=== PATIENT | female | born 1995 | race Two or more races ===

== ENCOUNTER 2017-03-11 17:02 | Emergency (ER) | payer MEDICAID ==
[2017-03-11] MEDS ORDERED: METOCLOPRAMIDE HCL 10 MG TABLET PO ONE (17:20)
--- NOTE | 2017-03-11 17:43 | ER Document Report ---
ED General - General Chief Complaint: Abdominal Pain Stated Complaint: ABDOMINAL PAIN Time Seen by Provider: 03/11/17 17:16 Mode of Arrival: Ambulatory Information source: Patient Notes: 21-year-old female presents with complaints of urinary symptoms and nausea. Patient notes she vomited 2 times today. Patient denies any fevers or chills TRAVEL OUTSIDE OF THE [place] IN LAST 30 DAYS: No - HPI Onset: Just prior to arrival Onset/Duration: Sudden Quality of pain: Achy Severity: Mild Pain Level: 1 Associated symptoms: Nausea, Vomiting Exacerbated by: Other - Urination Relieved by: Denies Similar symptoms previously: No Recently seen / treated by doctor: No - Related Data Allergies/Adverse Reactions: amphetamine sulfate [From Adderall] Allergy (Verified 01/11/15 20:38) dextroamphetamine [From Adderall] Allergy (Verified 01/11/15 20:38) risperidone [From Risperdal] Allergy (Verified 01/11/15 20:38) Past Medical History - Social History Smoking Status: Never Smoker Cigarette use (# per day): No Chew tobacco use (# tins/day): No Smoking Education Provided: No Frequency of alcohol use: None Drug Abuse: None Family History: DM, Thyroid Disfunction Renal/ Medical History: Denies: Hx Peritoneal Dialysis Psychiatric Medical History: Reports: Hx Attention Deficit Hyperactivity Disorder, Hx Bipolar Disorder - Immunizations Immunizations up to date: Yes Hx Diphtheria, Pertussis, Tetanus Vaccination: Yes Review of Systems - Review of Systems Notes: REVIEW OF SYSTEMS: CONSTITUTIONAL : Denies fever, chills, or sweats. Denies recent illness. EENT: Denies eye, ear, throat, or mouth pain or symptoms. Denies nasal or sinus congestion or discharge. Denies throat, tongue, or mouth swelling or difficulty swallowing. CARDIOVASCULAR: Denies chest pain. Denies palpitations or racing or irregular heart beat. Denies ankle edema. RESPIRATORY: Denies cough, cold, or chest congestion. Denies shortness of breath, difficulty breathing, or wheezing. GASTROINTESTINAL: Admits to nausea vomiting suprapubic pressure left flank pain GENITOURINARY: Admits to burning on urination FEMALE GENITOURINARY: Denies vaginal bleeding, heavy or abnormal periods, irregular periods. Denies vaginal discharge or odor. MUSCULOSKELETAL: Denies back or neck pain or stiffness. Denies joint pain or swelling. SKIN: Denies rash, lesions or sores. HEMATOLOGIC : Denies easy bruising or bleeding. LYMPHATIC: Denies swollen, enlarged glands. NEUROLOGICAL: Denies confusion or altered mental status. Denies passing out or loss of consciousness. Denies dizziness or lightheadedness. Denies headache. Denies weakness or paralysis or loss of use of either side. Denies problems with gait or speech. Denies sensory loss, numbness, or tingling. Denies seizures. PSYCHIATRIC: Denies anxiety or stress. Denies depression, suicidal ideation, or homicidal ideation. ALL OTHER SYSTEMS REVIEWED AND NEGATIVE. PHYSICAL EXAMINATION: GENERAL: Well-appearing, well-nourished and in no acute distress. HEAD: Atraumatic, normocephalic. EYES: Pupils equal round and reactive to light, extraocular movements intact, conjunctiva are normal. ENT: Nares patent, oropharynx clear without exudates. Moist mucous membranes. NECK: Normal range of motion, supple without lymphadenopathy LUNGS: Breath sounds clear to auscultation bilaterally and equal. No wheezes rales or rhonchi. HEART: Regular rate and rhythm without murmurs ABDOMEN: Soft, nontender, nondistended abdomen. No guarding, no rebound. No masses appreciated. Female : deferred Musculoskeletal: Normal range of motion, no pitting or edema. No cyanosis. NEUROLOGICAL: Cranial nerves grossly intact. Normal speech, normal gait. Normal sensory, motor exams PSYCH: Normal mood, normal affect. SKIN: Warm, Dry, normal turgor, no rashes or lesions noted. Dictation was performed using siX[employer] voice recognition software Physical Exam - Vital signs Vitals: Temp Pulse Resp BP Pulse Ox 98.7 F 81 16 141/78 H 98 03/11/17 17:06 03/11/17 17:06 03/11/17 17:06 03/11/17 17:06 03/11/17 17:06 Course - Re-evaluation Re-evalutation: 03/11/17 17:45 Physical examination noted a very well-appearing 21-year-old female who is in no distress. Urinalysis is pending at this time. Patient given nausea control 03/11/17 18:18 Urinalysis notes no significant abnormality, hCG is negative. I believe patient 's biggest concern is a test since she keeps asking for this specifically After performing a Medical Screening Examination, I estimate there is LOW risk for ACUTE APPENDICITIS, BOWEL OBSTRUCTION, ACUTE CHOLECYSTITIS, PERFORATED DIVERTICULITIS, INCARCERATED HERNIA, PANCREATITIS, PELVIC INFLAMMATORY DISEASE, PERFORATED ULCER, ECTOPIC , or TUBO-OVARIAN ABSCESS, thus I consider the discharge disposition reasonable. Also, there is no evidence or peritonitis , sepsis, or toxicity. I have reevaluated this patient multiple times and no significant life threatening changes are noted. The patient and I have discussed the diagnosis and risks, and we agree with discharging home with close follow-up with the understanding that symptoms and presentations can change. We also discussed returning to the Emergency Department immediately if new or worsening symptoms occur. We have discussed the symptoms which are most concerning (e.g., bloody stool, fever, changing or worsening pain, vomiting) that necessitate immediate return. - Vital Signs Vital signs: Temp Pulse Resp BP Pulse Ox 98.7 F 81 16 141/78 H 98 03/11/17 17:06 03/11/17 17:06 03/11/17 17:06 03/11/17 17:06 03/11/17 17:06 - Laboratory Laboratory results interpreted by me: 03/11/17 17:35 Urine Blood SMALL H Discharge - Discharge Clinical Impression: Nausea & vomiting Qualifiers: Vomiting type: unspecified Vomiting Intractability: non-intractable Qualified Code(s): R11.2 - Nausea with vomiting, unspecified Abdominal pain Qualifiers: Abdominal location: unspecified location Qualified Code(s): R10.9 - Unspecified abdominal pain Condition: Stable Disposition: HOME, SELF-CARE Instructions: Abdominal Pain ([facility]) Additional Instructions: Follow up with your physician tomorrow for further care or return to the ED IMMEDIATELY if symptoms worsen or new concerns occur. If you cannot afford to follow up with your primary care physician a list of low cost clinics have been provided at the end of your discharge papers as well. Prescriptions: Metoclopramide HCl [Reglan 10 mg Tablet] 1 - 2 tab PO ASDIR PRN #14 tablet PRN Reason:
[2017-03-11 17:57] LABS: APPEARANCE,URINE CLEAR; BILIRUBIN,URINE NEGATIVE (NEGATIVE); GLUCOSE, URINE NEGATIVE (NEGATIVE); KETONES,URINE NEGATIVE (NEGATIVE); LEUKOCYTE ESTERASE,URINE NEGATIVE (NEGATIVE); NITRITE,URINE NEGATIVE (NEGATIVE); PROTEIN,URINE NEGATIVE (NEGATIVE); URINE SPECIFIC GRAVITY 1.021; UROBILINOGEN,URINE NEGATIVE mg/dL (<2.0)
[2017-03-11 18:50] VITALS: BP 138/74
== END 2017-03-11 18:31 | disposition home or self-care (01) ==
LOC: ER 17:02
DX: R11.2 Nausea with vomiting, unspecified (principal); R10.9 Unspecified abdominal pain; Z88.8 Allergy status to other drugs, medicaments and biological substances
CPT/HCPCS: 81025; 99284; 81001; J3490

== ENCOUNTER 2017-09-05 13:36 | Emergency (ER) | payer MEDICAID ==
--- NOTE | 2017-09-05 14:14 | ER Document Report ---
ED Medical Screen (RME) - General Chief Complaint: Abdominal Pain Stated Complaint: ABDOMINAL PAIN, LOW BACK PAIN Time Seen by Provider: 09/05/17 14:10 Mode of Arrival: Ambulatory Information source: Patient TRAVEL OUTSIDE OF THE [place] IN LAST 30 DAYS: No - HPI Patient complains to provider of: abd pain Onset: Other - pt is approx 25 weels and has c/o abd and LBP - Related Data Allergies/Adverse Reactions: amphetamine sulfate [From Adderall] Allergy (Verified 09/05/17 13:39) dextroamphetamine [From Adderall] Allergy (Verified 09/05/17 13:39) risperidone [From Risperdal] Allergy (Verified 09/05/17 13:39) Past Medical History - Social History Chew tobacco use (# tins/day): No Frequency of alcohol use: None Drug Abuse: None Renal/ Medical History: Denies: Hx Peritoneal Dialysis Psychiatric Medical History: Reports: Hx Attention Deficit Hyperactivity Disorder, Hx Bipolar Disorder Past Surgical History: Reports: Hx Tonsillectomy - Immunizations Immunizations up to date: Yes Hx Diphtheria, Pertussis, Tetanus Vaccination: Yes Physical Exam - Vital signs Vitals: Temp Pulse Resp BP Pulse Ox 98.6 F 77 18 128/63 H 100 09/05/17 13:44 09/05/17 13:44 09/05/17 13:44 09/05/17 13:44 09/05/17 13:44 Course - Vital Signs Vital signs: Temp Pulse Resp BP Pulse Ox 98.6 F 77 18 128/63 H 100 09/05/17 13:44 09/05/17 13:44 09/05/17 13:44 09/05/17 13:44 09/05/17 13:44
[2017-09-05 14:33] LABS: ABSOLUTE LYMPHOCYTES (AUTO) 1.2 10^3/uL (0.5-4.7); ABSOLUTE MONOCYTES (AUTO) 0.3 10^3/uL (0.1-1.4); ABSOLUTE NEUT (AUTO) 4.7 10^3/uL (1.7-8.2); BASOPHILS % (AUTO) 0.7 % (0-2); EOSINOPHILS % (AUTO) 0.4 % (0-6); HEMATOCRIT 34.3 % (36.0-47.0); HEMOGLOBIN 11.8 g/dL (12.0-15.5); LYMPHOCYTES % (AUTO) 19.3 % (13-45); MEAN CORPUSCULAR HEMOGLOBIN 28.7 pg (27.0-33.4); MEAN CORPUSCULAR HGB CONC 34.3 g/dL (32.0-36.0); MEAN CORPUSCULAR VOLUME 84 fl (80-97); MONOCYTES % (AUTO) 4.4 % (3-13); PLATELET COUNT 192 10^3/uL (150-450); RED CELL DISTRIBUTION WIDTH 14.8 % (11.5-14.0); SEGMENTED NEUTROPHILS % (AUTO) 75.2 % (42-78); TOTAL CELLS COUNTED % (AUTO) 100 %; WHITE BLOOD COUNT 6.2 10^3/uL (4.0-10.5)
[2017-09-05 14:36] LABS: APPEARANCE,URINE CLOUDY; BILIRUBIN,URINE NEGATIVE (NEGATIVE); COLOR,URINE YELLOW; GLUCOSE, URINE NEGATIVE (NEGATIVE); KETONES,URINE 20 mg/dL (NEGATIVE); LEUKOCYTE ESTERASE,URINE TRACE (NEGATIVE); NITRITE,URINE NEGATIVE (NEGATIVE); PROTEIN,URINE NEGATIVE (NEGATIVE); URINE SPECIFIC GRAVITY 1.025; UROBILINOGEN,URINE NEGATIVE mg/dL (<2.0)
[2017-09-05 14:48] LABS: ALANINE AMINOTRANSFERASE 16 U/L (9-52); ALBUMIN 3.7 g/dL (3.5-5.0); ALKALINE PHOSPHATASE 84 U/L (38-126); ANION GAP 7 (5-19); ASPARTATE AMINO TRANSFERASE 14 U/L (14-36); BILIRUBIN,DIRECT 0.3 mg/dL (0.0-0.4); BILIRUBIN,TOTAL 0.4 mg/dL (0.2-1.3); BLOOD UREA NITROGEN 11 mg/dL (7-20); CALCIUM 9.2 mg/dL (8.4-10.2); CARBON DIOXIDE 22 mmol/L (22-30); CHLORIDE 107 mmol/L (98-107); GLUCOSE 69 mg/dL (75-110); POTASSIUM 4.2 mmol/L (3.6-5.0); SODIUM 135.9 mmol/L (137-145); TOTAL PROTEIN 6.5 g/dL (6.3-8.2)
--- NOTE | 2017-09-05 16:35 | RADIOLOGY REPORT (SQ) ---
EXAM DESCRIPTION: U/S OB 14+ TA/1 GEST W/DOPPLER COMPLETED DATE/TIME: 09/05/2017 4:22 pm REASON FOR STUDY: ; abd pain COMPARISON: None. TECHNIQUE: Static and Dynamic grayscale imaging performed of gravid uterus using transabdominal appr oach. Additional selected color Doppler and spectral images recorded. All stored on PACS. LIMITATIONS: positioning and movement. FINDINGS: EGA: 24 weeks 4 days JONI: 12/22/2017 EFW: 735 grams PERCENTILE: 40 CARL: 5.5 PLACENTA: Anterior. GRADE: I PRESENTATION: Cephalic. ANATOMY: HEART RATE: 150 beats per minute. FOUR CHAMBER HEART: Not visualized. THREE VESSEL CORD: Yes. CORD INSERTION: Not visualized. KIDNEYS AND BLADDER: Not visualized. STOMACH: Visualized. Appears normal. SPINE: Normal as visualized. BRAIN AND LATERAL VENTRICLES: Visualized. Appear normal. OTHER: No other significant finding. MATERNAL ADNEXA: Maternal ovaries not visualized. CERVICAL LENGTH: 3.1 cm Closed. OTHER: No other significant finding. IMPRESSION: LIVING INTRAUTERINE . ESTIMATED GESTATIONAL AGE 24 weeks 4 days NO VISUALIZED ANOMALIES. Trimester of : Second trimester - 13 weeks 1 day to 27 weeks 6 days. TECHNICAL DOCUMENTATION: JOB ID: [id number] [employer]- All Rights Reserved
--- NOTE | 2017-09-05 18:18 | ER Document Report ---
ED GI/ - General Mode of Arrival: Ambulatory Information source: Patient TRAVEL OUTSIDE OF THE [place] IN LAST 30 DAYS: No <SANDRA CURIEL - Last Filed: 09/05/17 18:32> <ENMANUEL BATISTA - Last Filed: 09/05/17 23:42> - General Chief Complaint: Abdominal Pain Stated Complaint: ABDOMINAL PAIN, LOW BACK PAIN Time Seen by Provider: 09/05/17 14:10 Notes: Patient is a 25 week 22-year-old female who is that presents to the emergency department today with complaints of back pain and abdominal pain. Patient is approximately 25 weeks . Patient states that she has not been drinking enough water because her "big cup broke" and she "does not like getting up to go back and forth to get water". (SANDRA CURIEL) - Related Data Allergies/Adverse Reactions: amphetamine sulfate [From Adderall] Allergy (Verified 09/05/17 13:39) dextroamphetamine [From Adderall] Allergy (Verified 09/05/17 13:39) risperidone [From Risperdal] Allergy (Verified 09/05/17 13:39) Past Medical History - General Information source: Patient - Social History Smoking Status: Former Smoker Cigarette use (# per day): No Chew tobacco use (# tins/day): No Frequency of alcohol use: None Drug Abuse: None Lives with: Family Family History: Reviewed & Not Pertinent, DM, Thyroid Disfunction Patient has suicidal ideation: No Patient has homicidal ideation: No Psychiatric Medical History: Reports: Hx Attention Deficit Hyperactivity Disorder, Hx Bipolar Disorder Past Surgical History: Reports: Hx Tonsillectomy - Immunizations Immunizations up to date: Yes Hx Diphtheria, Pertussis, Tetanus Vaccination: Yes <SANDRA CURIEL - Last Filed: 09/05/17 18:32> Review of Systems - Review of Systems Constitutional: No symptoms reported EENT: No symptoms reported Cardiovascular: No symptoms reported Respiratory: No symptoms reported Gastrointestinal: See HPI, Abdominal pain Genitourinary: No symptoms reported Female Genitourinary: See HPI, Musculoskeletal: See HPI, Back pain Skin: No symptoms reported Hematologic/Lymphatic: No symptoms reported Neurological/Psychological: No symptoms reported -: Yes All other systems reviewed and negative <SANDRA CURIEL - Last Filed: 09/05/17 18:32> Physical Exam <ROXANA CURIELON - Last Filed: 09/05/17 18:32> <ENMANUEL BATISTA - Last Filed: 09/05/17 23:42> - Vital signs Vitals: Temp Pulse Resp BP Pulse Ox 98.6 F 77 18 128/63 H 100 09/05/17 13:44 09/05/17 13:44 09/05/17 13:44 09/05/17 13:44 09/05/17 13:44 - Notes Notes: General: Alert, appears well, talking on cellphone upon entry into room in no distress. HEENT: Normocephalic. Atraumatic. PERRL. Extraocular movements intact. Oropharynx clear. Neck: Supple. Non-tender. Respiratory: No respiratory distress. Clear and equal breath sounds bilaterally. Cardiovascular: Regular rate and rhythm. Abdominal: Normal Inspection. Non-tender. No distension. Normal Bowel Sounds. Female Genitourinary: Gravid uterus. Back: Non-tender. No deformity or step off. Extremities: Moves all four extremities. Upper extremities: Normal inspection. Normal ROM. Lower extremities: Normal inspection. No edema. Normal ROM. Neurological: Normal cognition. AAOx4. Normal speech. Psychological: Normal affect. Normal Mood. Skin: Warm. Dry. Normal color. (SANDRA CURIEL) Course - Laboratory Result Diagrams: 09/05/17 14:25 09/05/17 14:25 <SANDRA CURIEL - Last Filed: 09/05/17 18:32> - Laboratory Result Diagrams: 09/05/17 14:25 09/05/17 14:25 <ENMANUEL BATISTA - Last Filed: 09/05/17 23:42> - Re-evaluation Re-evalutation: 09/05/17 18:22 Workup shows no signs of urinary tract infection with normal intrauterine . Patient does have mild ketones. I did discuss with patient need for hydration. Return precautions provided. Instructed the patient follow-up with her OB GEN for next scheduled regular appointment. (ENMANUEL BATISTA) - Vital Signs Vital signs: Temp Pulse Resp BP Pulse Ox 98.1 F 87 16 120/54 L 100 09/05/17 17:19 09/05/17 18:40 09/05/17 18:40 09/05/17 18:40 09/05/17 18:40 - Laboratory Laboratory results interpreted by me: 09/05/17 09/05/17 09/05/17 14:25 14:25 14:25 Hgb 11.8 L Hct 34.3 L RDW 14.8 H Sodium 135.9 L Glucose 69 L Beta HCG, Quant 60599.00 H Urine Ketones 20 H Ur Leukocyte Esterase TRACE H Discharge <SANDRA CURIEL - Last Filed: 09/05/17 18:32> <ENMANUEL BATISTA - Last Filed: 09/05/17 23:42> - Discharge Clinical Impression: Dehydration during Qualifiers: Weeks of gestation: 25 weeks Qualified Code(s): Z3A.25 - 25 weeks gestation of Back pain Qualifiers: Back pain location: low back pain Chronicity: unspecified Back pain laterality : bilateral Sciatica presence: without sciatica Qualified Code(s): M54.5 - Low back pain Disposition: HOME, SELF-CARE Instructions: Low Back Pain ([facility]), Pelvic Pain in ([facility]) Additional Instructions: Please drink at least 4-6 16oz glasses of water a day. Prescriptions: Metoclopramide HCl [Reglan 10 mg Tablet] 1 - 2 tab PO ASDIR PRN #15 tablet PRN Reason: Scribe Attestation: 09/05/17 23:42 I personally performed the services described documentation, reviewed and edited the documentation which was dictated to describe my presence, and it accurately records my words and actions. (ENMANUEL BATISTA) Scribe Documentation - Scribe Written by Scribe:: Jose Escudero, 09/05/2017 1857 acting as scribe for :: Sarah <SANDRA CURIEL - Last Filed: 09/05/17 18:32>
[2017-09-05 18:42] VITALS: BP 120/54
== END 2017-09-05 18:42 | disposition home or self-care (01) ==
LOC: ER 13:36
DX: O99.282 Endocrine, nutritional and metabolic diseases complicating pregnancy, second trimester (principal); E86.0 Dehydration; O26.892 Other specified pregnancy related conditions, second trimester; M54.5 Low back pain; O99.89 Other specified diseases and conditions complicating pregnancy, childbirth and the puerperium; R10.9 Unspecified abdominal pain; Z3A.25 25 weeks gestation of pregnancy; Z88.8 Allergy status to other drugs, medicaments and biological substances; Z87.891 Personal history of nicotine dependence
CPT/HCPCS: 36415; 76805; 80053; 81001; 84702; 85025; 93976; 99284

== ENCOUNTER 2017-12-11 15:14 | Outpatient (CLI) | payer MEDICAID ==
--- NOTE | 2017-12-11 16:07 | Non Stress Test Report ---
Non Stress Test Datetime Report Generated by CPN: 12/11/2017 16:07 DEMOGRAPHIC EGA NST: 39.0 INDICATION Indication for Study: Ordered by Provider Indication for Study (NST) Other: LC MONITORING Monitor Explained: Monitor Explained; Test Explained; Patient Verbalized Understanding Time on Monitor: 12/11/2017 15:42 Time off Monitor: 12/11/2017 16:04 NST Duration: 22 NST INTERVENTIONS NST Interventions: PO Hydration; Reposition Patient Physician Notified NST: JTrevin Coronado, CNM viewed strip BABY A: [id number] BABY A Movement : Present Contraction Frequency : 0 FHR Baseline : 140 Accelerations : 15X15 Decelerations : None Variability : Moderate 6-25bpm NST Review: Meets Criteria for Reactive NST NST Review and Verified By : KARYN Shipman Results: Reactive NST REPORT Report Trigger: Send Report
[2017-12-11 16:40] LABS: APPEARANCE,URINE CLEAR; BILIRUBIN,URINE NEGATIVE (NEGATIVE); COLOR,URINE YELLOW; GLUCOSE, URINE NEGATIVE (NEGATIVE); KETONES,URINE NEGATIVE (NEGATIVE); LEUKOCYTE ESTERASE,URINE NEGATIVE (NEGATIVE); NITRITE,URINE NEGATIVE (NEGATIVE); PROTEIN,URINE NEGATIVE (NEGATIVE); URINE SPECIFIC GRAVITY 1.009
[2017-12-11 16:56] LABS: URINE AMPHETAMINES SCREEN NEGATIVE; URINE BARBITURATES SCREEN NEGATIVE; URINE BENZODIAZEPINES SCREEN NEGATIVE; URINE COCAINE SCREEN NEGATIVE; URINE MARIJUANA (THC) SCREEN NEGATIVE; URINE METHADONE SCREEN NEGATIVE; URINE PHENCYCLIDINE SCREEN NEGATIVE
== END 2017-12-11 17:15 | disposition home or self-care (01) ==
LOC: EDSTATUS 15:19 → LC 15:23
PROVIDERS: ATTEND Obstetrics & Gynecology
PROC: 4A1HXCZ Monitoring of Products of Conception, Cardiac Rate, External Approach (ICD-10-PCS; principal; 2017-12-11)
DX: Z34.93 Encounter for supervision of normal pregnancy, unspecified, third trimester (principal)
CPT/HCPCS: 59025; 80307; 81001

== ENCOUNTER 2017-12-17 20:11 | Outpatient (CLI) | payer MEDICAID ==
[2017-12-17 20:52] LABS: APPEARANCE,URINE CLOUDY; BILIRUBIN,URINE NEGATIVE (NEGATIVE); COLOR,URINE YELLOW; GLUCOSE, URINE NEGATIVE (NEGATIVE); KETONES,URINE NEGATIVE (NEGATIVE); LEUKOCYTE ESTERASE,URINE TRACE (NEGATIVE); NITRITE,URINE NEGATIVE (NEGATIVE); PROTEIN,URINE 30 mg/dL (NEGATIVE); URINE SPECIFIC GRAVITY 1.019
[2017-12-17 21:05] LABS: AMNISURE (ROM) NEGATIVE (NEGATIVE)
[2017-12-17 21:27] LABS: URINE AMPHETAMINES SCREEN NEGATIVE; URINE BARBITURATES SCREEN NEGATIVE; URINE BENZODIAZEPINES SCREEN NEGATIVE; URINE COCAINE SCREEN NEGATIVE; URINE MARIJUANA (THC) SCREEN NEGATIVE; URINE METHADONE SCREEN NEGATIVE; URINE PHENCYCLIDINE SCREEN NEGATIVE
[2017-12-17 22:35] LABS: CHLAM PCR NOT DETECTED (NOT DETECT); GON PCR NOT DETECTED (NOT DETECT)
== END 2017-12-17 21:34 | disposition home or self-care (01) ==
LOC: LC 20:11
PROVIDERS: ATTEND Obstetrics & Gynecology Gynecology
PROC: 4A1HXCZ Monitoring of Products of Conception, Cardiac Rate, External Approach (ICD-10-PCS; principal; 2017-12-17)
DX: O47.1 False labor at or after 37 completed weeks of gestation (principal); Z3A.39 39 weeks gestation of pregnancy
CPT/HCPCS: 59025; 80307; 81005; 84112; 87081; 87491; 87591

== ENCOUNTER 2017-12-18 06:10 | Inpatient (IN) | payer MEDICAID ==
--- NOTE | 2017-12-18 06:13 | Non Stress Test Report ---
Non Stress Test Datetime Report Generated by CPN: 12/18/2017 06:13 DEMOGRAPHIC EGA NST: 39.6 INDICATION Indication for Study: Ordered by Provider; Other Indication for Study (NST) Other: LC MONITORING Monitor Explained: Monitor Explained; Test Explained; Patient Verbalized Understanding Time on Monitor: 12/17/2017 20:31 Time off Monitor: 12/17/2017 21:26 NST Duration: 55 NST INTERVENTIONS NST Interventions: PO Hydration; Reposition Patient Physician Notified NST: Dr Blair BABY A: [id number] BABY A Movement : Present Contraction Frequency : irregular FHR Baseline : 140 Accelerations : 15X15 Decelerations : None Variability : Moderate 6-25bpm NST Review: Meets Criteria for Reactive NST NST Review and Verified By : Michelle Bellavancjaniya RNC NST Results: Reactive NST REPORT Report Trigger: Send Report
[2017-12-18 06:46] LABS: APPEARANCE,URINE CLOUDY; BILIRUBIN,URINE NEGATIVE (NEGATIVE); COLOR,URINE YELLOW; GLUCOSE, URINE NEGATIVE (NEGATIVE); KETONES,URINE NEGATIVE (NEGATIVE); LEUKOCYTE ESTERASE,URINE TRACE (NEGATIVE); NITRITE,URINE NEGATIVE (NEGATIVE); PROTEIN,URINE NEGATIVE (NEGATIVE); URINE SPECIFIC GRAVITY 1.012
[2017-12-18 07:06] LABS: URINE AMPHETAMINES SCREEN NEGATIVE; URINE BARBITURATES SCREEN NEGATIVE; URINE BENZODIAZEPINES SCREEN NEGATIVE; URINE COCAINE SCREEN NEGATIVE; URINE MARIJUANA (THC) SCREEN NEGATIVE; URINE METHADONE SCREEN NEGATIVE; URINE PHENCYCLIDINE SCREEN NEGATIVE
[2017-12-18] MEDS ORDERED: RINGERS SOLUTION,LACTATED 1,000 ML IV PRN (07:18)
[2017-12-18] MEDS ORDERED: RINGERS SOLUTION,LACTATED 1,000 ML IV ONE (07:18)
[2017-12-18 07:58] LABS: ABSOLUTE LYMPHOCYTES (AUTO) 1.5 10^3/uL (0.5-4.7); ABSOLUTE MONOCYTES (AUTO) 0.4 10^3/uL (0.1-1.4); ABSOLUTE NEUT (AUTO) 5.1 10^3/uL (1.7-8.2); BASOPHILS % (AUTO) 0.6 % (0-2); EOSINOPHILS % (AUTO) 0.4 % (0-6); HEMATOCRIT 34.7 % (36.0-47.0); HEMOGLOBIN 11.4 g/dL (12.0-15.5); LYMPHOCYTES % (AUTO) 21.3 % (13-45); MEAN CORPUSCULAR HEMOGLOBIN 25.8 pg (27.0-33.4); MEAN CORPUSCULAR HGB CONC 32.8 g/dL (32.0-36.0); MEAN CORPUSCULAR VOLUME 79 fl (80-97); MONOCYTES % (AUTO) 5.1 % (3-13); PLATELET COUNT 131 10^3/uL (150-450); RED BLOOD COUNT 4.42 10^6/uL (3.72-5.28); RED CELL DISTRIBUTION WIDTH 16.1 % (11.5-14.0); SEGMENTED NEUTROPHILS % (AUTO) 72.6 % (42-78); TOTAL CELLS COUNTED % (AUTO) 100 %
[2017-12-18] MEDS ORDERED: MISOPROSTOL 0.2 MG TABLET ONE (08:07)
[2017-12-18] MEDS ORDERED: OXYTOCIN/NORMAL SALINE 0 UNIT/0 ML RTUINJ ONE (08:07)
[2017-12-18] MEDS ORDERED: LIDOCAINE 1% INJ-PF (10 MG/ML) 30 ML SDV ONE (08:07)
[2017-12-18] MEDS ORDERED: OXYTOCIN 10 UNIT/ML VIAL ONE (08:23)
[2017-12-18] MEDS ORDERED: ACETAMINOPHEN WITH CODEINE #3 TABLET PO PRN (08:41)
[2017-12-18] MEDS ORDERED: MEASLES,MUMPS&RUBELLA VACC/PF 0.5 ML VIAL SUBCUT PRN (08:41)
[2017-12-18] MEDS ORDERED: DIPHENHYDRAMINE HCL 25 MG CAPSULE PO PRN (08:41)
[2017-12-18] MEDS ORDERED: PROMETHAZINE HCL INJ 25 MG/1 ML VIAL IV PRN (08:41)
[2017-12-18] MEDS ORDERED: GLYCERIN/WITCH HAZEL LEAF 1 EACH MED..PAD TP PRN (08:41)
[2017-12-18] MEDS ORDERED: ACETAMINOPHEN 650 MG SUPP.RECT PR PRN (08:41)
[2017-12-18] MEDS ORDERED: NA PHOS,M-B/NA PHOS,DI-BA (ADULT) 133 ML ENEMA PR PRN (08:41)
[2017-12-18] MEDS ORDERED: PROMETHAZINE HCL 25 MG SUPP.RECT PR PRN (08:41)
[2017-12-18] MEDS ORDERED: DIPH/PERTUSS(ACELL)/TETANUS VAC/PF 0.5 ML SYR (>=10YO) IM PRN (08:41)
[2017-12-18] MEDS ORDERED: MAGNESIUM HYDROXIDE SUSP 30 ML UDCUP PO PRN (08:41)
[2017-12-18] MEDS ORDERED: DIBUCAINE 1% OINTMENT 28 GM TP PRN (08:41)
[2017-12-18] MEDS ORDERED: ACETAMINOPHEN 325 MG TABLET PO PRN (08:41)
[2017-12-18] MEDS ORDERED: BENZOCAINE/MENTHOL AEROSOL SPRAY 56 ML TOP PRN (08:41)
[2017-12-18] MEDS ORDERED: PROMETHAZINE HCL 25 MG TABLET PO PRN (08:41)
[2017-12-18] MEDS ORDERED: PSEUDOEPHEDRINE HCL 30 MG TABLET PO PRN (08:41)
--- NOTE | 2017-12-18 08:44 | Admission Physical ---
Datetime Report Generated by CPN: 12/18/2017 08:44 CURRENT ADMISSION Chief Complaint: Uterine Contractions Indication for Induction: Not Applicable Admit Impression : Term, Intrauterine ; Active Labor Admit Plan: Admit to Unit; Initiate Labor Protocol ALLERGIES Medication Allergies: Yes Medication Allergies: amphetamine sulfate (12/17/2017); dextroamphetamine (12/17/2017); risperidone (12/17/2017) Latex: No Latex Allergies Food Allergies: none Environmental Allergies: none OBSTETRICAL HISTORY EDC: 12/18/2017 00:00 : 4 Para: 2 Term: 2 : 0 SAB: 1 IAB: 0 Ectopic: 0 Livin Cesareans: 0 VBACs: 0 Multiple Births: 0 Gestational Diabetes: No Rh Sensitization: No Incompetent Cervix: No SAMUEL: No Infertility: No ART Treatment: No Uterine Anomaly: No IUGR: No Hx Previous C/S: No Macrosomia: No Hx Loss/Stillborn: No PIH: No Hx : No Placenta Previa/Abruption: No Depression/PP Depression: Yes PTL/PROM: No Post Hemorrhage: No Current Procedures: Ultrasound; NST Obstetrical History Comments: G1 2014 39 girl G2 2015 39 boy G3 2016 SAB G4 current SEE RECORDS Alcohol: No Marijuana : No Cocaine: No Other Illicit Drugs: No Cigarettes: Never Smoker. 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 Surgery: No Heart Disease: No Hosp/Surgery: Yes Autoimmune Disorder: No Anesthetic Complications: No Kidney Disease: No Abnormal Pap Smear: No Neuro/Epilepsy: No Psychiatric Disorders: Yes Other Medical Diseases: No Hepatitis/Liver Disease: No Significant Family History: No Varicosities/Phlebitis: No Trauma/Violence : No Thyroid Dysfunction: No Medical History Comments: Depression and anxiety, Bipolar INFECTIOUS HISTORY Gonorrhea: No Genital Herpes: No Chlamydia: No Tuberculosis: No Syphilis: No Hepatitis: No HIV/AIDS Exposure: No Rash or Viral Illness: No HPV: No PHYSICAL EXAM General: Normal HEENT: Normal Neurologic: Normal Thyroid: Normal Heart: Normal Lungs: Normal Breast: Normal Back: Normal Abdomen: Normal Genitourinary Exam: Normal Extremities: Normal DTRs: Normal Pelvic Type: Adequate Vital Signs: Reviewed VAGINAL EXAM Dilatation: 9 Effacement: 100 Station: 2 MEMBRANES Pooling: Positive Membranes: Ruptured Amniotic Fluid Color: Clear FETUS A EGA: 40.0 Monitoring: External US FHR- Baseline: 130 Variability: Moderate 6-25bpm Accelerations: 15X15 Decelerations: Variable FHR Category: Category II Estimated Weight (gm): 3700 Presentation: Vertex Admit Comment: AROM performed by me. PLANS FOR LABOR AND DELIVERY Labor and Delivery: None Pain Management: Epidural Feeding Preference: Formula Benefit of Breast Feed Discussed: Yes Circumcision: N/A INFORMED CONSENT Signature: with User ID: [email or web address]
--- NOTE | 2017-12-18 09:35 | Delivery Summary ---
Del Sum A-C Datetime Report Generated by CPN: 12/18/2017 09:35 DELIVERY PERSONNEL DELIVERY PERSONNEL: [id number] Delivery Doctor:: Shahrzad Tan CNM Labor and Delivery Nurse:: Emely Springer RNpacking machine pilot can router Nurse:: Cinthia Connors Air Conditioning Service Technician/DELIVERY ROUTE DRIVER: Kelsi Lakhani, ST Additional Personnel: : Mary Mixon, RN MATERNAL INFORMATION Delivery Anesthesia: None Medications After Delivery: Other-Please Comment Meds After Delivery Comment: Pitocin 20 Units IM Maternal Complications: Precipitous Labor (<3hrs) Provider Comments: care assumed while patient was pushing. Pt. is a 22yo G4 now P3 A pos, RI, GBS neg with late entry to care and significant hx of ADHD, bipolar disorder and depression. Pt. continued pushing and with coaching went on to deliver a viable baby girl. Baby delivered ALBERTO thru tight nuchal cord x1. Terminal meconium noted at delivery. Vigorous respiratory effort and cry spontaneously at . Baby placed on maternal abdomen skin to skin. Cord allowed to stop pulsating then clamped x2 and cut by patient. Placenta delivered spontaneously intact (3vc noted, central insertion). Vaginal and perineal inspection revealed no lacerations and just a small abrasion as noted. Fundus firm @ u-1, bleeding minimal. Mother and baby skin to skin and stable at this time. LABOR SUMMARY EDC: 12/18/2017 00:00 No. Babies in Womb: 1 Attempted: No Labor Anesthesia: None LABOR INFORMATION Reason for Induction: Not Applicable Onset of Labor: 12/18/2017 06:20 Complete Dilatation: 12/18/2017 08:13 Oxytocin: N/A Group B Beta Strep: Negative Antibiotics # of Doses: 0 Steroids Given: None Reason Steroids Not Administered: Not Applicable MEMBRANES Membranes Rupture Method: Artificial Rupture of Membranes: 12/18/2017 08:10 Length of Rupture (hr): 0.18 Amniotic Fluid Color: Clear Amniotic Fluid Amount: Scant Amniotic Fluid Odor: Normal STAGES OF LABOR Stage 1 hr: 1 Stage 1 min: 53 Stage 2 hr: 0 Stage 2 min: 8 Stage 3 hr: 0 Stage 3 min: 5 Total Time in Labor hr: 2 Total Time in Labor min: 6 VAGINAL DELIVERY Episiotomy: None Laceration #1: None Laceration Extension #1: N/A Other Laceration: superficial abrasion on right vaginal wall-hemostatic no repair needed Laceration Repair: Not Applicable Sponge Count Correct: N/A Sharps Count Correct: N/A CSECTION DELIVERY Primary Indication: N/A Secondary Indication: N/A CSection Incidence: N/A Labor: N/A Elective: N/A CSection Incision: N/A BABY A INFORMATION Delivery Date/Time: 12/18/2017 08:21 Method of Delivery: Vaginal Born in Route : No : N/A Forceps: N/A Vacuum Extraction: N/A Shoulder Dystocia : No PRESENTATION/POSITION BABY A Presentation: Cephalic Cephalic Presentation: Vertex Vertex Position: Left Occipital Anterior Breech Presentation: N/A PLACENTA INFORMATION BABY A Placenta Delivery Time : 12/18/2017 08:26 Placenta Method of Delivery: Spontaneous Placenta Status: Delivered SCORES BABY A Heart Rate 1 min: >100 bpm Resp Effort 1 min: Good Cry Reflex Irritability 1 min: Cough or Sneeze or Pulls Away Muscle Tone 1 min: Active Motion Color 1 min: Blue/Pale Resuscitation Effort 1 min: Tactile Stimulation SCORE 1 MIN: 8 Heart Rate 5 min: >100 bpm Resp Effort 5 min: Good Cry Reflex Irritability 5 min: Cough or Sneeze or Pulls Away Muscle Tone 5 min: Active Motion Color 5 min: Body [place], Extremities Blue Resuscitation Effort 5 min: Tactile Stimulation SCORE 5 MIN: 9 INFORMATION BABY A Gestational Age at Delivery: 40.0 Gestational Status: Full Term- 39- 40.6 Weeks Infant Outcome : Liveborn Infant Condition : Stable Infant Sex: Female IDENTIFICATION BABY A Verification Date/Time: 12/18/2017 08:21 ID Band Number: [id number] Mother's Name Verified: Yes RN Verifying Infant: CTrevin Mixon,RN/ B. Marthady, RN WEIGHT/LENGTH BABY A Infant Birthweight (gm): 3160 Infant Weight (lb): 6 Infant Weight (oz): 15 Infant Length (in): 19.75 Infant Length (cm): 50.17 CORD INFORMATION BABY A No. Cord Vessels: 3 Nuchal Cord : Around Neck x1, Tight Cord Blood Taken: Yes-For Storage (Mom's Blood type +) Suction: None ASSESSMENT BABY A Infant Complications: None Physical Findings at Delivery: Within Normal Limits Respirations: Appears Normal Grocery Cashier/ALS Called : No Care By: C. Cornelius RN Transferred To: Remains with Mother BABY B INFORMATION : N/A SIGNATURES Assignment: Zoe Prado MD Signature: with User ID: [email or web address] : with User ID: [email or web address]
[2017-12-18] MEDS: IBUPROFEN 800 MG TABLET PO SCH ×2 (10:05→21:19)
[2017-12-18] MEDS ORDERED: IBUPROFEN 800 MG TABLET ONE (10:05)
[2017-12-18] MEDS: SENNOSIDES/DOCUSATE 8.6-50 MG 1 EACH TABLET PO SCH (10:53)
[2017-12-18] MEDS: DOCUSATE SODIUM 100 MG CAPSULE PO SCH ×2 (10:53→18:37)
[2017-12-18] MEDS: FERROUS SULFATE 325 MG TABLET PO SCH ×2 (10:53→18:37)
[2017-12-18] MEDS: FAMOTIDINE 20 MG TABLET PO SCH ×2 (10:54→21:19)
[2017-12-18] MEDS: PRENATAL VITAMIN W DHA CAPSULE PO SCH (10:54)
[2017-12-19] MEDS: IBUPROFEN 800 MG TABLET PO SCH ×3 (05:53→21:37)
[2017-12-19 06:51] LABS: HEMATOCRIT 33.7 % (36.0-47.0); HEMOGLOBIN 11.2 g/dL (12.0-15.5); MEAN CORPUSCULAR HEMOGLOBIN 26.1 pg (27.0-33.4); MEAN CORPUSCULAR HGB CONC 33.4 g/dL (32.0-36.0); MEAN CORPUSCULAR VOLUME 78 fl (80-97); PLATELET COUNT 136 10^3/uL (150-450); RED BLOOD COUNT 4.29 10^6/uL (3.72-5.28); RED CELL DISTRIBUTION WIDTH 16.1 % (11.5-14.0); WHITE BLOOD COUNT 9.2 10^3/uL (4.0-10.5)
--- NOTE | 2017-12-19 09:02 | PDOC PROGRESS REPORT ---
Subjective-OB Progress Note for:: 12/19/17 Subjective: s/p day #1 Pt denies concerns, states lochia is stable, voiding without difficulty, pain well controlled, pt resting comfortably. Physical Exam (OB) Vital Signs: Temp Pulse Resp BP Pulse Ox 97.8 F 54 L 17 112/58 L 100 12/19/17 07:50 12/19/17 07:50 12/19/17 07:50 12/19/17 07:50 12/19/17 07:50 Intake & Output 12/18/17 12/19/17 12/20/17 06:59 06:59 06:59 Weight 88 kg - Lochia Lochia Amount: Scant < 10 ml Lochia Color: Rubra/Red - Abdomen Description: Soft, Round Hernia Present: No Fundal Description: Firm, Midline Fundal Height: u/u - u/2 Objective-Diagnostic Laboratory: 12/19/17 06:39 12/19/17 06:39 WBC 9.2 RBC 4.29 Hgb 11.2 L Hct 33.7 L MCV 78 L MCH 26.1 L MCHC 33.4 RDW 16.1 H Plt Count 136 L Assessment and Plan(PN) - Assessment and Plan (1) Active labor Is this a current diagnosis for this admission?: Yes Plan: delivered (2) Limited care Qualifiers: Trimester: third trimester Qualified Code(s): O09.33 - Supervision of with insufficient care, third trimester Is this a current diagnosis for this admission?: Yes Plan: d/c planning (3) Delivery normal Is this a current diagnosis for this admission?: Yes Plan: routine pp care - Time Spent with Patient Time with patient: Less than 15 minutes Critical Time spent with patient: Less than 15 minutes Medications reviewed and adjusted accordingly: Yes - Disposition Anticipated Discharge: Home Within: within 24 hours
[2017-12-19] MEDS: FERROUS SULFATE 325 MG TABLET PO SCH ×2 (09:24→18:11)
[2017-12-19] MEDS: SENNOSIDES/DOCUSATE 8.6-50 MG 1 EACH TABLET PO SCH (09:24)
[2017-12-19] MEDS: DOCUSATE SODIUM 100 MG CAPSULE PO SCH ×2 (09:24→18:11)
[2017-12-19] MEDS: PRENATAL VITAMIN W DHA CAPSULE PO SCH (09:25)
[2017-12-19] MEDS: FAMOTIDINE 20 MG TABLET PO SCH ×2 (11:03→21:27)
[2017-12-20] MEDS: IBUPROFEN 800 MG TABLET PO SCH (06:28)
[2017-12-20 08:42] VITALS: BP 121/70
[2017-12-20] MEDS ORDERED: MEDROXYPROGESTERONE ACET INJ 150 MG/1 ML VIAL IM ONE (10:23)
--- NOTE | 2017-12-20 10:25 | PDOC PROGRESS REPORT ---
Subjective-OB Progress Note for:: 12/20/17 Subjective: Follow up at [facility] in 4 wks or prn. Pelvic rest x 4 wks. Physical Exam (OB) Vital Signs: Temp Pulse Resp BP Pulse Ox 98.4 F 65 15 121/70 100 12/20/17 08:16 12/20/17 08:16 12/20/17 08:16 12/20/17 08:16 12/20/17 08:16 - PIH/Pre-Eclampsia DTR's: 2 + Clonus: Negative Headache: Absent Epigastric Pain: No Visual Changes: No - Lochia Lochia Amount: Scant < 10 ml Lochia Color: Rubra/Red - Abdomen Description: Soft, Round Hernia Present: No Bowel Sounds: Normoactive Flatus Presence: Present Stool: Yes Fundal Description: Firm, Midline Fundal Height: u/u - u/2 Objective-Diagnostic Laboratory: 12/19/17 06:39 Assessment and Plan(PN) - Time Spent with Patient Medications reviewed and adjusted accordingly: Yes - Disposition Anticipated Discharge: Home
--- NOTE | 2017-12-20 10:37 | PDOC DISCHARGE SUMMARY ---
Final Diagnosis Discharge Date: 12/20/17 - Final Diagnosis (1) Active labor Is this a current diagnosis for this admission?: Yes (2) Limited care Is this a current diagnosis for this admission?: Yes (3) Delivery normal Is this a current diagnosis for this admission?: Yes Discharge Data - Discharge Medication Home Medications: No Home Medications 12/11/17 Gestational Age: 40.0 wks Reason(s) for Admission: Onset of Labor Intrapartum Procedure(s): Spontaneous Vaginal Delivery Complication(s): Laceration-Vaginal - [place] Data Baby 1 Female at 1 minute: 8 at 5 minutes: 9 Weight: 3.147 kg Home with Mother: Yes Complications: No - Diagnosis Test Laboratory: Temp Pulse Resp BP Pulse Ox 98.4 F 65 15 121/70 100 12/20/17 08:16 12/20/17 08:16 12/20/17 08:16 12/20/17 08:16 12/20/17 08:16 12/18/17 12/18/17 12/19/17 06:21 07:31 06:39 RBC 4.42 4.29 Hgb 11.4 L 11.2 L Hct 34.7 L 33.7 L Urine Opiates Screen NEGATIVE - Discharge information/Instructions Discharge Activity: Activity As Tolerated, Balance Activity w/Rest, Pelvic Rest , Slowly Increase Activity, No tub bath Discharge Diet: Regular Disposition: HOME, SELF-CARE Follow up with: [facility] in: 4, Weeks
== END 2017-12-20 13:22 | disposition home or self-care (01) | DRG 775 ==
LOC: LC 06:10 → LR 07:16 → 2S 10:36
PROVIDERS: ADMIT Obstetrics & Gynecology; ATTEND Obstetrics & Gynecology
PROC: 10E0XZZ Delivery of Products of Conception, External Approach (ICD-10-PCS; principal; 2017-12-18)
PROC: 10907ZC Drainage of Amniotic Fluid, Therapeutic from Products of Conception, Via Natural or Artificial Opening (ICD-10-PCS; 2017-12-18)
PROC: 4A1HXCZ Monitoring of Products of Conception, Cardiac Rate, External Approach (ICD-10-PCS; 2017-12-18)
DX: O99.344 Other mental disorders complicating childbirth (principal); F41.9 Anxiety disorder, unspecified; F31.9 Bipolar disorder, unspecified; O62.3 Precipitate labor; O69.1XX0 Labor and delivery complicated by cord around neck, with compression, not applicable or unspecified; O77.0 Labor and delivery complicated by meconium in amniotic fluid; Z88.8 Allergy status to other drugs, medicaments and biological substances; Z3A.40 40 weeks gestation of pregnancy; Z37.0 Single live birth
CPT/HCPCS: 36415; 80307; 81005; 85025; 85027; 86592; 86850; 86900; 86901; J1050; J2590; J3490

== ENCOUNTER 2018-08-17 21:16 | Emergency (ER) | payer MEDICAID | END 2018-08-17 22:35 | disposition left against medical advice (07) | LOC: ER 21:16 | DX: Z53.21 Procedure and treatment not carried out due to patient leaving prior to being seen by health care provider (principal) ==

== ENCOUNTER 2019-02-24 10:26 | Inpatient (IN) | payer MEDICAID ==
[2019-02-24] MEDS ORDERED: PENICILLIN G POTASSIUM 5,000,000 UNIT in DEXTROSE 5%-WATER 100 ML IV ONE (11:07)
[2019-02-24] MEDS ORDERED: OXYTOCIN/NORMAL SALINE 20 UNIT/1,000 ML RTUINJ IV PRN (11:07)
[2019-02-24] MEDS ORDERED: RINGERS SOLUTION,LACTATED 1,000 ML IV ONE (11:07)
[2019-02-24 11:12] LABS: APPEARANCE,URINE SLIGHTLY-CLOUDY; BILIRUBIN,URINE NEGATIVE (NEGATIVE); COLOR,URINE YELLOW; GLUCOSE, URINE NEGATIVE (NEGATIVE); KETONES,URINE NEGATIVE (NEGATIVE); LEUKOCYTE ESTERASE,URINE MODERATE (NEGATIVE); NITRITE,URINE NEGATIVE (NEGATIVE); PROTEIN,URINE NEGATIVE (NEGATIVE); URINE SPECIFIC GRAVITY 1.012
[2019-02-24 11:32] LABS: URINE AMPHETAMINES SCREEN NEGATIVE; URINE BARBITURATES SCREEN NEGATIVE; URINE BENZODIAZEPINES SCREEN NEGATIVE; URINE COCAINE SCREEN NEGATIVE; URINE MARIJUANA (THC) SCREEN NEGATIVE; URINE METHADONE SCREEN NEGATIVE; URINE PHENCYCLIDINE SCREEN NEGATIVE
[2019-02-24 11:48] LABS: ABSOLUTE LYMPHOCYTES (AUTO) 1.6 10^3/uL (0.5-4.7); ABSOLUTE MONOCYTES (AUTO) 0.3 10^3/uL (0.1-1.4); ABSOLUTE NEUT (AUTO) 4.5 10^3/uL (1.7-8.2); BASOPHILS % (AUTO) 0.4 % (0-2); EOSINOPHILS % (AUTO) 0.4 % (0-6); HEMATOCRIT 37.3 % (36.0-47.0); HEMOGLOBIN 12.3 g/dL (12.0-15.5); LYMPHOCYTES % (AUTO) 25.1 % (13-45); MEAN CORPUSCULAR VOLUME 79 fl (80-97); MONOCYTES % (AUTO) 5.1 % (3-13); PLATELET COUNT 146 10^3/uL (150-450); RED BLOOD COUNT 4.73 10^6/uL (3.72-5.28); RED CELL DISTRIBUTION WIDTH 16.5 % (11.5-14.0); TOTAL CELLS COUNTED % (AUTO) 100 %; WHITE BLOOD COUNT 6.5 10^3/uL (4.0-10.5)
[2019-02-24] MEDS ORDERED: GENTAMICIN SULFATE INJ 80 MG/2 ML VIAL IV ONE (11:51)
[2019-02-24] MEDS ORDERED: LIDOCAINE 1% INJ-PF (10 MG/ML) 30 ML SDV ONE (11:52)
[2019-02-24] MEDS ORDERED: MISOPROSTOL 0.2 MG TABLET ONE (11:52)
[2019-02-24] MEDS ORDERED: OXYTOCIN 10 UNIT/ML VIAL ONE (11:52)
[2019-02-24] MEDS ORDERED: OXYTOCIN/NORMAL SALINE 20 UNIT/1,000 ML RTUINJ ONE (11:52)
[2019-02-24] MEDS ORDERED: AMPICILLIN SOD INJ 2 GM VIAL ONE ×2 (11:53→18:01)
[2019-02-24] MEDS ORDERED: GENTAMICIN SULFATE INJ 80 MG/2 ML VIAL IV SCH (14:00)
[2019-02-24] MEDS ORDERED: NALBUPHINE HCL INJ 10 MG/1 ML AMPULE IV ONE (14:25)
[2019-02-24] MEDS ORDERED: GENTAMICIN SULFATE 175 MG in DEXTROSE 5%-WATER 100 ML IV ONE (14:30)
[2019-02-24] MEDS ORDERED: PENICILLIN G POTASSIUM 2,500,000 UNIT in DEXTROSE 5%-WATER 50 ML IV SCH (15:08)
--- NOTE | 2019-02-24 15:57 | Admission Physical ---
Datetime Report Generated by CPN: 02/24/2019 15:57 CURRENT ADMISSION Hx Assessment: The History has been Reviewed and is Current Chief Complaint: Uterine Contractions; Suspected Ruptured Membranes Indication for Induction: PROM Admit Impression : Ruptured Membranes; Induction of Labor Admit Plan: Admit to Unit; Initiate Labor Protocol; Initiate Labor Induction Protocol ALLERGIES Medication Allergies: Yes Medication Allergies: amphetamine sulfate (02/24/2019); dextroamphetamine (02/24/2019); risperidone (02/24/2019) Latex: No Latex Allergies OBSTETRICAL HISTORY EDC: 03/07/2019 00:00 : 5 Para: 3 Term: 3 : 0 SAB: 1 IAB: 0 Ectopic: 0 Livin Cesareans: 0 VBACs: 0 Multiple Births: 0 Gestational Diabetes: No Rh Sensitization: No Incompetent Cervix: No SAMUEL: No Infertility: No ART Treatment: No Uterine Anomaly: No IUGR: No Hx Previous C/S: No Macrosomia: No Hx Loss/Stillborn: No PIH: No Hx : No Placenta Previa/Abruption: No Depression/PP Depression: Yes PTL/PROM: No Post Hemorrhage: No Current Procedures: Ultrasound Obstetrical History Comments: currrently feeling depressed, no suicidal idealations SEE RECORDS Alcohol: No Marijuana : No Cocaine: No Other Illicit Drugs: No Cigarettes: Former Smoker. [id number] MEDICAL HISTORY Diabetes: No Blood Transfusion: No Pulmonary Disease (Asthma, TB): No Breast Disease: No Hypertension: No Human Capital Manager Surgery: No Heart Disease: No Hosp/Surgery: Yes Autoimmune Disorder: No Anesthetic Complications: No Kidney Disease: No Abnormal Pap Smear: No Neuro/Epilepsy: No Psychiatric Disorders: Yes Other Medical Diseases: No Hepatitis/Liver Disease: No Significant Family History: No Varicosities/Phlebitis: No Trauma/Violence : No Thyroid Dysfunction: No Medical History Comments: depression, anxiety, anger control issues-triggered by pain, tonsilectomy INFECTIOUS HISTORY Gonorrhea: Yes Genital Herpes: No Chlamydia: No Tuberculosis: No Syphilis: No Hepatitis: No HIV/AIDS Exposure: No Rash or Viral Illness: No HPV: No Infectious History Comments: 2015-treated PHYSICAL EXAM General: Normal Heart: Normal Lungs: Normal Extremities: Normal DTRs: Normal Pelvic Type: Adequate Physical Exam Comments: proven to 7lbs 9oz Vital Signs: Reviewed VAGINAL EXAM Dilatation: 1 Effacement: 50 Station: -3 Contraction Comments: 2-3 MEMBRANES Membranes: Ruptured FETUS A EGA: 38.3 Monitoring: External US Presentation: Vertex Admit Comment: 23yo @ 38w3d into L_D via EMS with reports of SROM yesterday at 1400 then some leaking again this AM with uterine contractions. Pt. is A pos, Rubella immune, GBS obtained on admission. Plan is to start IOL secondary to prolonged ruptured of membranes and antibiotics at this time. 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 Significant medical hx of obesity, bipolar disorder and closely spaced pregnancies. PLANS FOR LABOR AND DELIVERY Labor and Delivery: None Pain Management: Natural; Epidural Feeding Preference: Both Benefit of Breast Feed Discussed: Yes Circumcision: No INFORMED CONSENT Assignment: Mitzi Rowley MD Signature: with User ID: Tye : with User ID: [email or web address]
[2019-02-24 17:18] LABS: CHLAM PCR NOT DETECTED (NOT DETECT)
[2019-02-24] MEDS ORDERED: FENTANYL/BUPIVACAINE/NS/PF 300 MCG/150 ML RTUINJ EPI ONE (17:43)
[2019-02-24] MEDS ORDERED: BUPIVACAINE HCL 0.25 % INJ/PF (2.5 MG/1 ML) 30 ML VIAL ONE (17:43)
[2019-02-24] MEDS ORDERED: EPHEDRINE SULFATE INJ 50 MG/1 ML AMPULE ONE (17:43)
[2019-02-24] MEDS ORDERED: GENTAMICIN SULFATE 130 MG in DEXTROSE 5%-WATER 100 ML IV SCH (22:00)
[2019-02-25] MEDS ORDERED: AMPICILLIN SOD INJ 1 GM VIAL ONE (00:28)
[2019-02-25] MEDS ORDERED: PROMETHAZINE HCL INJ 25 MG/1 ML VIAL IV PRN (01:02)
[2019-02-25] MEDS ORDERED: PSEUDOEPHEDRINE HCL 30 MG TABLET PO PRN (01:02)
[2019-02-25] MEDS ORDERED: NA PHOS,M-B/NA PHOS,DI-BA (ADULT) 133 ML ENEMA PR PRN (01:02)
[2019-02-25] MEDS ORDERED: BENZOCAINE/MENTHOL AEROSOL SPRAY 56 ML TOP PRN (01:02)
[2019-02-25] MEDS ORDERED: MAGNESIUM HYDROXIDE SUSP 30 ML UDCUP PO PRN (01:02)
[2019-02-25] MEDS ORDERED: PROMETHAZINE HCL 25 MG SUPP.RECT PR PRN (01:02)
[2019-02-25] MEDS ORDERED: DIPHENHYDRAMINE HCL 25 MG CAPSULE PO PRN (01:02)
[2019-02-25] MEDS ORDERED: DIPH/PERTUSS(ACELL)/TETANUS VAC/PF 0.5 ML SYR (>=10YO) IM PRN (01:02)
[2019-02-25] MEDS ORDERED: ACETAMINOPHEN 325 MG TABLET PO PRN (01:02)
[2019-02-25] MEDS ORDERED: PROMETHAZINE HCL 25 MG TABLET PO PRN (01:02)
[2019-02-25] MEDS ORDERED: OXYTOCIN/NORMAL SALINE 20 UNIT/1,000 ML RTUINJ IV PRN (01:02)
[2019-02-25] MEDS ORDERED: DIBUCAINE 1% OINTMENT 56 GM TP PRN (01:02)
[2019-02-25] MEDS ORDERED: GLYCERIN/WITCH HAZEL LEAF 1 EACH MED..WIPE TP PRN (01:02)
[2019-02-25] MEDS ORDERED: ZOLPIDEM TARTRATE 5 MG TABLET PO PRN (01:02)
[2019-02-25] MEDS ORDERED: ACETAMINOPHEN WITH CODEINE #3 TABLET PO PRN (01:02)
[2019-02-25] MEDS ORDERED: MEASLES,MUMPS&RUBELLA VACC/PF 0.5 ML VIAL SUBCUT PRN (01:02)
[2019-02-25] MEDS ORDERED: OXYTOCIN/NORMAL SALINE 20 UNIT/1,000 ML RTUINJ ONE (01:11)
[2019-02-25] MEDS ORDERED: CEFAZOLIN 1 GM/D5W RTU 2 GM/100 ML RTUPB IV ONE ×2 (01:29→07:02)
--- NOTE | 2019-02-25 01:43 | Delivery Summary ---
Del Sum A-C Datetime Report Generated by CPN: 02/25/2019 01:43 DELIVERY PERSONNEL DELIVERY PERSONNEL: [id number] Delivery Doctor:: Mitzi Rowley MD Labor and Delivery Nurse:: Keke Barber RNpipe coverer helper Nurse:: Darling Osuna RN Nursery Nurse:: Lizbeth Laboy RN Nursery Nurse:: Joan BOSS Poultry Cleaner/FERRYBOAT OPERATOR CABLE: Soledad Caceres, ST MATERNAL INFORMATION Delivery Anesthesia: Epidural Medications After Delivery: Pitocin Bolus-Please Comment Estimated Blood Loss (ml): 250 Delivery QBL: 250 Delivery QBL Comment: 250ml Maternal Complications: Premature Rupture of Membranes; Other Other Maternal Complications: prolonged rupture of membranes Complication Details: PROM 02/23/2019 @ 1600 Provider Comments: VMI delivered in [place] with tight nuchal cord delivered through. SHoulders and body delivered without difficulty. Cord double clamped and cut and to NICU for evaluation. Placenta delivered intact spontaneously. FF at U. No perineal lacerations. Mother and baby stable upon provider leaving the room. Ancef for 24 hours post delivery due to prolonged rupture of membranes greater than [address] Reinoso anesthesia LABOR SUMMARY EDC: 03/07/2019 00:00 No. Babies in Womb: 1 Attempted: No Labor Anesthesia: Epidural LABOR INFORMATION Reason for Induction: Premature Rupture of Membranes Reason for Induction- Other: Prolonged Rupture of Membranes (greater than 18hours not in labor) Onset of Labor: 02/23/2019 16:00 Complete Dilatation: 02/25/2019 00:43 Other Ripening Agents: pitocin Oxytocin: Induction Group B Beta Strep: UNKNOWN Antibiotics # of Doses: 2 Antibiotics Time of Last Dose: 2215, 0030 Name of Antibiotic Given: Gent, Amp Steroids Given: None Reason Steroids Not Administered: Not Applicable MEMBRANES Membranes Rupture Method: Spontaneous Rupture of Membranes: 02/23/2019 16:00 Length of Rupture (hr): 32.87 Amniotic Fluid Color: Clear Amniotic Fluid Amount: Large Amniotic Fluid Odor: Normal STAGES OF LABOR Stage 1 hr: 32 Stage 1 min: 43 Stage 2 hr: 0 Stage 2 min: 9 Stage 3 hr: 0 Stage 3 min: 1 Total Time in Labor hr: 32 Total Time in Labor min: 53 VAGINAL DELIVERY Episiotomy: None Laceration #1: None Laceration Extension #1: N/A Laceration Repair: Not Applicable Sponge Count Correct: N/A Sharps Count Correct: N/A CSECTION DELIVERY Primary Indication: N/A Secondary Indication: N/A CSection Incidence: N/A Labor: N/A Elective: N/A CSection Incision: N/A BABY A INFORMATION Infant Delivery Date/Time: 02/25/2019 00:52 Method of Delivery: Vaginal Born in Route : No : N/A Forceps: N/A Vacuum Extraction: N/A Shoulder Dystocia : No PRESENTATION/POSITION BABY A Presentation: Cephalic Cephalic Presentation: Vertex Vertex Position: Right Occipital Anterior Breech Presentation: N/A PLACENTA INFORMATION BABY A Placenta Delivery Time : 02/25/2019 00:53 Placenta Method of Delivery: Spontaneous Placenta Status: Delivered SCORES BABY A Heart Rate 1 min: >100 bpm Resp Effort 1 min: Good Cry Reflex Irritability 1 min: Cough or Sneeze or Pulls Away Muscle Tone 1 min: Some Flexion of Extremities Color 1 min: Blue/Pale Resuscitation Effort 1 min: Tactile Stimulation SCORE 1 MIN: 7 Heart Rate 5 min: >100 bpm Resp Effort 5 min: Good Cry Reflex Irritability 5 min: Cough or Sneeze or Pulls Away Muscle Tone 5 min: Active Motion Color 5 min: Blue/Pale Resuscitation Effort 5 min: Tactile Stimulation SCORE 5 MIN: 8 INFORMATION BABY A Gestational Age at Delivery: 38.3 Gestational Status: Early Term- 37- 38.6 Weeks Outcome : Liveborn Infant Condition : Fair Sex: Male IDENTIFICATION BABY A Infant Verification Date/Time: 02/25/2019 01:06 ID Band Number: [id number] Mother's Name Verified: Yes Infant RN Verifying : TTrevin Pompa, RN and L. Barber, RN WEIGHT/LENGTH BABY A Infant Birthweight (gm): 3330 Weight (lb): 7 Infant Weight (oz): 5 Infant Length (in): 20.00 Length (cm): 50.80 CORD INFORMATION BABY A No. Cord Vessels: 3 Nuchal Cord : Around Neck x1, Tight Cord Blood Taken: Yes-For Storage (Mom's Blood type +) Infant Suction: None BABY B INFORMATION : N/A SIGNATURES Signature: with User ID: Holly
[2019-02-25] MEDS ORDERED: IBUPROFEN 800 MG TABLET ONE (02:51)
[2019-02-25] MEDS ORDERED: CEFAZOLIN 2 GM/D5W RTU 2 GM/50 ML RTUPB IV SCH (06:00)
[2019-02-25] MEDS: IBUPROFEN 800 MG TABLET PO SCH ×3 (09:28→21:25)
[2019-02-25] MEDS: FAMOTIDINE 20 MG TABLET PO SCH ×2 (09:28→21:25)
[2019-02-25] MEDS: DOCUSATE SODIUM 100 MG CAPSULE PO SCH ×2 (09:28→18:10)
[2019-02-25] MEDS: SENNOSIDES/DOCUSATE 8.6-50 MG 1 EACH TABLET PO SCH (09:28)
[2019-02-25] MEDS: FERROUS SULFATE 325 MG TABLET PO SCH ×2 (09:28→18:08)
[2019-02-25] MEDS: PRENATAL VITAMIN W DHA CAPSULE PO SCH (09:28)
[2019-02-25] MEDS: AMPICILLIN SOD INJ 2 GM VIAL IM SCH (09:35)
[2019-02-25] MEDS ORDERED: HYDROMORPHONE HCL INJ/PF 2 MG/ML AMPULE ONE (10:27)
--- NOTE | 2019-02-25 10:49 | PDOC PROGRESS REPORT ---
Subjective-OB Progress Note for:: 02/25/19 Subjective: Pt 10 hrs post after IOL for prolonged ROM, called to room by RN to evaluate bleeding. Pt passed 2 large clots in the toilet. States she has been bleeding heavy since delivery. Physical Exam (OB) Vital Signs: Temp Pulse Resp BP Pulse Ox 98.6 F 61 18 131/80 H 02/25/19 08:02 02/25/19 08:02 02/25/19 08:02 02/25/19 08:02 Intake & Output 02/24/19 02/25/19 02/26/19 06:59 06:59 06:59 Intake Total 1303.25 Balance 1303.25 Weight 87.5 kg - Lochia Lochia Amount: Moderate 25-50 ml Lochia Color: Rubra/Red - Abdomen Description: Tender Fundal Description: Firm Fundal Height: u/u - u/2 - Genitourinary [place] exam: Other - Vaginal sweep and sweep of FUNMI with sterile gloves, small clots extracted Objective-Diagnostic Laboratory: 02/24/19 11:25 02/24/19 02/24/19 02/24/19 10:31 11:25 11:25 WBC 6.5 RBC 4.73 Hgb 12.3 Hct 37.3 MCV 79 L MCH 26.0 L MCHC 33.0 RDW 16.5 H Plt Count 146 L Seg Neutrophils % 69.0 Lymphocytes % 25.1 Monocytes % 5.1 Eosinophils % 0.4 Basophils % 0.4 Absolute Neutrophils 4.5 Absolute Lymphocytes 1.6 Absolute Monocytes 0.3 Absolute Eosinophils 0.0 Absolute Basophils 0.0 Urine Color YELLOW Urine Appearance SLIGHTLY-CLOUDY Urine pH 6.0 Ur Specific [place] 1.012 Urine Protein NEGATIVE Urine Glucose (UA) NEGATIVE Urine Ketones NEGATIVE Urine Blood NEGATIVE Urine Nitrite NEGATIVE Ur Leukocyte Esterase MODERATE H Blood Type A POSITIVE Antibody Screen NEGATIVE Assessment and Plan(PN) - Assessment and Plan (1) Gestational thrombocytopenia Qualifiers: Trimester: unspecified trimester Qualified Code(s): O99.119 - Other diseases of the blood and blood-forming organs and certain disorders involving the immune mechanism complicating , unspecified trimester; D69.6 - Thrombocytopenia, unspecified Is this a current diagnosis for this admission?: Yes (2) Limited care Qualifiers: Trimester: unspecified trimester Qualified Code(s): O09.30 - Supervision of with insufficient care, unspecified trimester Is this a current diagnosis for this admission?: Yes (3) Prolonged rupture of membranes Is this a current diagnosis for this admission?: Yes (4) Vaginal delivery Is this a current diagnosis for this admission?: Yes Plan:: methergine PO Q6hrs - Time Spent with Patient Time with patient: 15-25 minutes Smoking Education Provided: Over 3 minutes Medications reviewed and adjusted accordingly: Yes - Disposition Anticipated Discharge: Home Within: within 24 hours
[2019-02-25] MEDS ORDERED: METHYLERGONOVINE MALEATE 0.2 MG TABLET ONE (11:19)
[2019-02-25] MEDS: METHYLERGONOVINE MALEATE 0.2 MG TABLET PO SCH ×3 (11:22→23:45)
[2019-02-25] MEDS ORDERED: CEFAZOLIN SODIUM 2 GM in DEXTROSE 5%-WATER 100 ML IV SCH ×2 (12:00→15:00)
[2019-02-26] MEDS: IBUPROFEN 800 MG TABLET PO SCH ×3 (05:05→23:05)
[2019-02-26] MEDS: METHYLERGONOVINE MALEATE 0.2 MG TABLET PO SCH ×3 (05:27→18:36)
[2019-02-26 07:50] LABS: HEMATOCRIT 30.8 % (36.0-47.0); HEMOGLOBIN 10.4 g/dL (12.0-15.5); MEAN CORPUSCULAR HEMOGLOBIN 26.8 pg (27.0-33.4); MEAN CORPUSCULAR HGB CONC 33.9 g/dL (32.0-36.0); MEAN CORPUSCULAR VOLUME 79 fl (80-97); RED CELL DISTRIBUTION WIDTH 16.7 % (11.5-14.0); WHITE BLOOD COUNT 8.6 10^3/uL (4.0-10.5)
[2019-02-26 08:26] LABS: PLATELET COUNT 94 10^3/uL (150-450)
[2019-02-26] MEDS: FAMOTIDINE 20 MG TABLET PO SCH ×2 (10:02→23:04)
[2019-02-26] MEDS: FERROUS SULFATE 325 MG TABLET PO SCH ×2 (10:02→18:36)
[2019-02-26] MEDS: PRENATAL VITAMIN W DHA CAPSULE PO SCH (10:02)
[2019-02-26] MEDS: SENNOSIDES/DOCUSATE 8.6-50 MG 1 EACH TABLET PO SCH (10:02)
[2019-02-26] MEDS: DOCUSATE SODIUM 100 MG CAPSULE PO SCH ×2 (10:02→18:36)
--- NOTE | 2019-02-26 10:16 | PDOC PROGRESS REPORT ---
Subjective-OB Progress Note for:: 02/26/19 - PP Day #1, doing well, s/p Ancef during labor for Prolonged ROM, A+, rubella Immune, breast and bottlefeeding Physical Exam (OB) Vital Signs: Temp Pulse Resp BP Pulse Ox 97.8 F 62 16 116/72 98 02/26/19 08:17 02/26/19 08:17 02/26/19 08:17 02/26/19 08:17 02/26/19 08:17 Intake & Output 02/25/19 02/26/19 02/27/19 06:59 06:59 06:59 Intake Total 1603.25 Balance 1603.25 Weight 87.5 kg - General General Appearance: Appears well, Alert In distress: None - PIH/Pre-Eclampsia Clonus: Negative Headache: Absent Epigastric Pain: No Visual Changes: No - Lochia Lochia Amount: Scant < 10 ml Lochia Color: Rubra/Red - Abdomen Description: Tender, Soft Hernia Present: No Fundal Description: Firm, Midline Fundal Height: u/u - u/2 - Respiratory Respiratory Status: No respiratory distress - Abdominal Inspection: Normal Distension: No distension - Genitourinary Genitourinary Note: voiding - Extremities Upper extremity: Normal inspection Lower extremities: Normal inspection - Neurological Cognition: Normal Orientation: AAOx4 - Psychological Associated symptoms: Normal affect, Normal mood - Skin Skin Temperature: Warm Skin Moisture: Dry Objective-Diagnostic Laboratory: 02/26/19 06:43 02/26/19 06:43 WBC 8.6 RBC 3.90 Hgb 10.4 L Hct 30.8 L MCV 79 L MCH 26.8 L MCHC 33.9 RDW 16.7 H Plt Count 94 L 02/24/19 13:47 Vaginal/Anorectal Group B Streptococcus Culture - Final GROUP B BETA HEMOLYTIC STREPTOCOCCUS RECOVERED Assessment and Plan(PN) - Assessment and Plan (1) Gestational thrombocytopenia Qualifiers: Trimester: unspecified trimester Qualified Code(s): O99.119 - Other diseases of the blood and blood-forming organs and certain disorders involving the immune mechanism complicating , unspecified trimester; D69.6 - Thrombocytopenia, unspecified Is this a current diagnosis for this admission?: Yes (2) Limited care Qualifiers: Trimester: unspecified trimester Qualified Code(s): O09.30 - Supervision of with insufficient care, unspecified trimester Is this a current diagnosis for this admission?: Yes (3) Prolonged rupture of membranes Is this a current diagnosis for this admission?: Yes (4) Vaginal delivery Is this a current diagnosis for this admission?: Yes - Time Spent with Patient Time with patient: Less than 15 minutes Smoking Education Provided: Over 3 minutes Medications reviewed and adjusted accordingly: Yes - Disposition Anticipated Discharge: Home Within: within 24 hours
[2019-02-26] MEDS: ACETAMINOPHEN WITH CODEINE #3 TABLET PO PRN (23:04)
[2019-02-27] MEDS: IBUPROFEN 800 MG TABLET PO SCH ×2 (06:34→15:41)
[2019-02-27] MEDS ORDERED: METHYLERGONOVINE MALEATE 0.2 MG TABLET ONE (06:37)
[2019-02-27] MEDS: METHYLERGONOVINE MALEATE 0.2 MG TABLET PO SCH ×3 (06:39→06:43)
[2019-02-27] MEDS: SENNOSIDES/DOCUSATE 8.6-50 MG 1 EACH TABLET PO SCH (09:18)
[2019-02-27] MEDS: FAMOTIDINE 20 MG TABLET PO SCH (09:18)
[2019-02-27] MEDS: DOCUSATE SODIUM 100 MG CAPSULE PO SCH (09:18)
[2019-02-27] MEDS: FERROUS SULFATE 325 MG TABLET PO SCH (09:18)
[2019-02-27] MEDS: PRENATAL VITAMIN W DHA CAPSULE PO SCH (09:18)
[2019-02-27 10:18] VITALS: BP 127/68
--- NOTE | 2019-02-27 11:21 | PDOC PROGRESS REPORT ---
Subjective-OB Progress Note for:: 02/27/19 Subjective: Ready for discharge but upset as baby to stay as wt loss too high. Physical Exam (OB) Vital Signs: Temp Pulse Resp BP Pulse Ox 97.2 F 50 L 16 127/68 H 100 02/27/19 10:15 02/27/19 10:15 02/27/19 10:15 02/27/19 10:15 02/27/19 10:15 Intake & Output 02/26/19 02/27/19 02/28/19 06:59 06:59 06:59 Intake Total 1603.25 200 Balance 1603.25 200 - PIH/Pre-Eclampsia Clonus: Negative Headache: Absent Epigastric Pain: No Visual Changes: No - Lochia Lochia Amount: Scant < 10 ml Lochia Color: Rubra/Red - Abdomen Description: Tender, Soft Hernia Present: No Bowel Sounds: Normoactive Flatus Presence: Present Stool: No Fundal Description: Firm, Midline Fundal Height: u/u - u/2 Objective-Diagnostic Laboratory: 02/26/19 06:43 02/24/19 10:31 Clean Catch Midstream Urine Culture - Final Staph Coagulase Negative 02/24/19 13:47 Vaginal/Anorectal Group B Streptococcus Culture - Final GROUP B BETA HEMOLYTIC STREPTOCOCCUS RECOVERED Assessment and Plan(PN) - Time Spent with Patient Smoking Education Provided: Over 3 minutes Medications reviewed and adjusted accordingly: Yes - Disposition Anticipated Discharge: Home
--- NOTE | 2019-02-27 11:32 | PDOC DISCHARGE SUMMARY ---
Final Diagnosis Discharge Date: 02/27/19 - Final Diagnosis (1) Carrier of group B Streptococcus Is this a current diagnosis for this admission?: Yes (2) Gestational thrombocytopenia Is this a current diagnosis for this admission?: Yes (3) History depression and anxiety Is this a current diagnosis for this admission?: Yes (4) Limited care Is this a current diagnosis for this admission?: Yes (5) Prolonged rupture of membranes Is this a current diagnosis for this admission?: Yes (6) Vaginal delivery Is this a current diagnosis for this admission?: Yes Discharge Data - Discharge Medication Prescriptions: Acetaminophen with Codeine [Tylenol #3 Tablet] 1 each PO Q4HP PRN #20 tablet PRN Reason: Ferrous Sulfate [Feosol 325 mg Tablet] 325 mg PO BID #30 tablet Home Medications: Acetaminophen with Codeine [Tylenol #3 Tablet] 1 each PO Q4HP PRN #20 tablet 02/27/19 Ferrous Sulfate [Feosol 325 mg Tablet] 325 mg PO BID #30 tablet 02/27/19 Gestational Age: 38.3 wks Reason(s) for Admission: Onset of Labor Procedures: Ultrasound Intrapartum Procedure(s): Spontaneous Vaginal Delivery - [place] Data Baby 1 Male at 1 minute: 7 at 5 minutes: 8 Weight: 3.317 kg Home with Mother: No Complications: Yes - Weight loss - Diagnosis Test Laboratory: Temp Pulse Resp BP Pulse Ox 97.2 F 50 L 16 127/68 H 100 02/27/19 10:15 02/27/19 10:15 02/27/19 10:15 02/27/19 10:15 02/27/19 10:15 02/24/19 02/24/19 02/26/19 10:31 11:25 06:43 RBC 4.73 3.90 Hgb 12.3 10.4 L Hct 37.3 30.8 L Urine Opiates Screen NEGATIVE - Discharge information/Instructions Discharge Activity: Activity As Tolerated, Balance Activity w/Rest, Pelvic Rest, Slowly Increase Activity, No tub bath Discharge Diet: Regular Disposition: HOME, SELF-CARE Follow up with: [facility] in: 4, Weeks
[2019-02-27] MEDS: ACETAMINOPHEN WITH CODEINE #3 TABLET PO PRN (15:42)
== END 2019-02-27 18:00 | disposition home or self-care (01) | DRG 806 ==
LOC: LC 10:26 → LR 11:09 → 2S 18:40 → LR 18:50 → 2S 02-25 08:05
PROVIDERS: ADMIT Student in an Organized Health Care Education/Training Program; ATTEND Student in an Organized Health Care Education/Training Program
PROC: 10E0XZZ Delivery of Products of Conception, External Approach (ICD-10-PCS; principal; 2019-02-25)
PROC: 3E0234Z Introduction of Serum, Toxoid and Vaccine into Muscle, Percutaneous Approach (ICD-10-PCS; 2019-02-27)
DX: O42.12 Full-term premature rupture of membranes, onset of labor more than 24 hours following rupture (principal); O99.12 Other diseases of the blood and blood-forming organs and certain disorders involving the immune mechanism complicating childbirth; Z37.0 Single live birth; O99.824 Streptococcus B carrier state complicating childbirth; D69.6 Thrombocytopenia, unspecified; O99.214 Obesity complicating childbirth; E66.9 Obesity, unspecified; O69.1XX0 Labor and delivery complicated by cord around neck, with compression, not applicable or unspecified; O99.344 Other mental disorders complicating childbirth; F41.9 Anxiety disorder, unspecified; F32.9 Major depressive disorder, single episode, unspecified; Z3A.38 38 weeks gestation of pregnancy; Z23 Encounter for immunization; Z87.891 Personal history of nicotine dependence
CPT/HCPCS: 36415; 80307; 81005; 84112; 85025; 85027; 86592; 86850; 86900; 86901; 87077; 87081; 87086; 87088; 87491; 87591; 88307; 90715; J0290; J0690; J1170; J1580; J2590; J3010; J3490; J7060

== ENCOUNTER 2019-06-02 10:10 | Emergency (ER) | payer MEDICAID ==
[2019-06-02] MEDS ORDERED: ONDANSETRON 4 MG TAB.RAPDIS PO ONE (10:35)
--- NOTE | 2019-06-02 10:36 | ER Document Report ---
ED Medical Screen (RME) - General Chief Complaint: Abdominal Pain Stated Complaint: ABDOMINAL PAIN Time Seen by Provider: 06/02/19 10:32 Primary Care Provider: EDWIN NEWBY MD [Primary Care Provider] - Follow up as needed Mode of Arrival: Ambulatory Information source: Patient Notes: Patient presents complaining of periumbilical pain for the past month. Patient reports irregular menses. Patient reports nausea and has had some vaginal discharge. Patient denies any urinary symptoms vomiting or diarrhea. I have greeted and performed a rapid initial assessment of this patient. A comprehensive ED assessment and evaluation of the patient, analysis of test results and completion of the medical decision making process will be conducted by additional ED providers. TRAVEL OUTSIDE OF THE [place] IN LAST 30 DAYS: No - Related Data Allergies/Adverse Reactions: amphetamine sulfate [From Adderall] Allergy (Verified 02/24/19 10:47) dextroamphetamine [From Adderall] Allergy (Verified 02/24/19 10:47) risperidone [From Risperdal] Allergy (Verified 02/24/19 10:47) Past Medical History Renal/ Medical History: Denies: Hx Peritoneal Dialysis Psychiatric Medical History: Reports: Hx Attention Deficit Hyperactivity Disorder, Hx Bipolar Disorder Past Surgical History: Reports: Hx Tonsillectomy - Immunizations Immunizations up to date: Yes Hx Diphtheria, Pertussis, Tetanus Vaccination: Yes Physical Exam - Abdominal Tenderness: Tender - Periumbilical Doctor's Discharge - Discharge Referrals: EDWIN NEWBY MD [Primary Care Provider] - Follow up as needed
[2019-06-02 11:13] LABS: ABSOLUTE EOSINOPHILS # (AUTO) 0.1 10^3/uL (0.0-0.6); ABSOLUTE LYMPHOCYTES (AUTO) 1.6 10^3/uL (0.5-4.7); ABSOLUTE MONOCYTES (AUTO) 0.2 10^3/uL (0.1-1.4); ABSOLUTE NEUT (AUTO) 2.7 10^3/uL (1.7-8.2); BASOPHILS % (AUTO) 0.9 % (0-2); EOSINOPHILS % (AUTO) 1.7 % (0-6); HEMATOCRIT 38.5 % (36.0-47.0); HEMOGLOBIN 12.6 g/dL (12.0-15.5); LYMPHOCYTES % (AUTO) 34.8 % (13-45); MEAN CORPUSCULAR HEMOGLOBIN 26.6 pg (27.0-33.4); MEAN CORPUSCULAR HGB CONC 32.7 g/dL (32.0-36.0); MEAN CORPUSCULAR VOLUME 82 fl (80-97); PLATELET COUNT 202 10^3/uL (150-450); RED BLOOD COUNT 4.73 10^6/uL (3.72-5.28); RED CELL DISTRIBUTION WIDTH 15.4 % (11.5-14.0); SEGMENTED NEUTROPHILS % (AUTO) 58.6 % (42-78); TOTAL CELLS COUNTED % (AUTO) 100 %; WHITE BLOOD COUNT 4.6 10^3/uL (4.0-10.5)
[2019-06-02 11:14] LABS: APPEARANCE,URINE CLEAR; BILIRUBIN,URINE NEGATIVE (NEGATIVE); COLOR,URINE YELLOW; GLUCOSE, URINE NEGATIVE (NEGATIVE); KETONES,URINE NEGATIVE (NEGATIVE); PROTEIN,URINE NEGATIVE (NEGATIVE); URINE SPECIFIC GRAVITY 1.018; UROBILINOGEN,URINE NEGATIVE mg/dL (<2.0)
[2019-06-02 11:29] LABS: ALBUMIN 3.8 g/dL (3.5-5.0); ALKALINE PHOSPHATASE 59 U/L (38-126); ANION GAP 8 (5-19); ASPARTATE AMINO TRANSFERASE 20 U/L (14-36); BILIRUBIN,TOTAL 0.3 mg/dL (0.2-1.3); BLOOD UREA NITROGEN 9 mg/dL (7-20); CALCIUM 8.9 mg/dL (8.4-10.2); CARBON DIOXIDE 25 mmol/L (22-30); CHLORIDE 107 mmol/L (98-107); GLUCOSE 93 mg/dL (75-110); POTASSIUM 3.9 mmol/L (3.6-5.0); TOTAL PROTEIN 6.3 g/dL (6.3-8.2)
[2019-06-02 14:50] LABS: RBCS (WET MOUNT) 4+ RBCS SEEN; T.VAGINALIS (WET MOUNT) NO TRICHOMONAS SEEN; WBCS (WET MOUNT) 1+ WBCS SEEN; YEAST (WET MOUNT) NO YEAST SEEN
[2019-06-02 14:59] LABS: CHLAM PCR NOT DETECTED (NOT DETECT)
--- NOTE | 2019-06-02 15:37 | ER Document Report ---
ED General - General Chief Complaint: Abdominal Pain Stated Complaint: ABDOMINAL PAIN Time Seen by Provider: 06/02/19 10:32 Primary Care Provider: EDWIN NEWBY MD [ACTIVE STAFF] - Follow up as needed Mode of Arrival: Ambulatory Information source: Patient TRAVEL OUTSIDE OF THE [place] IN LAST 30 DAYS: No - HPI Notes: Patient presents complaining of diffuse abdominal pain and vaginal bleeding. She states this is been going on for the entire month. She states that her periods have been heavy and this is now her second period this month. She states abdominal pain is crampy and nothing makes it better or worse. Is mild t o moderate. Is intermittent. She states it radiates across her entire abdomen. She states she is also had some vaginal discharge and is concerned she may have cyclic transmitted disease. No dysuria urgency or frequency. She is unsure if she was . - Related Data Allergies/Adverse Reactions: amphetamine sulfate [From Adderall] Allergy (Verified 02/24/19 10:47) dextroamphetamine [From Adderall] Allergy (Verified 02/24/19 10:47) risperidone [From Risperdal] Allergy (Verified 02/24/19 10:47) Past Medical History - General Information source: Patient - Social History Smoking Status: Never Smoker Frequency of alcohol use: None Drug Abuse: None Family History: Reviewed & Not Pertinent, DM, Thyroid Disfunction Patient has suicidal ideation: No Patient has homicidal ideation: No Renal/ Medical History: Denies: Hx Peritoneal Dialysis Psychiatric Medical History: Reports: Hx Attention Deficit Hyperactivity Disorder, Hx Bipolar Disorder Past Surgical History: Reports: Hx Tonsillectomy - Immunizations Immunizations up to date: Yes Hx Diphtheria, Pertussis, Tetanus Vaccination: Yes Review of Systems - Review of Systems Constitutional: denies: Chills, Fever Cardiovascular: denies: Chest pain, Palpitations Respiratory: denies: Cough, Short of breath -: Yes All other systems reviewed and negative Physical Exam - Vital signs Vitals: Temp Pulse BP Pulse Ox 98.2 F 82 129/80 H 100 06/02/19 10:33 06/02/19 10:33 06/02/19 10:33 06/02/19 10:33 Interpretation: Normal - General General appearance: Appears well, Alert - HEENT Head: Normocephalic, Atraumatic Eyes: Normal Pupils: PERRL - Respiratory Respiratory status: No respiratory distress Chest status: Nontender Breath sounds: Normal Chest palpation: Normal - Cardiovascular Rhythm: Regular Heart sounds: Normal auscultation Murmur: No - Abdominal Inspection: Normal Distension: No distension Bowel sounds: Normal Tenderness: Nontender Organomegaly: No organomegaly - Genitourinary External exam: Normal Speculum exam: Normal, Cervix closed, Other - Some mild dark blood consistent with menstrual cycle Vaginal bleeding: Mild Bimanuel exam: Normal - Back Back: Normal, Nontender - Extremities General upper extremity: Normal inspection, Nontender, Normal color, Normal ROM, Normal temperature General lower extremity: Normal inspection, Nontender, Normal color, Normal ROM, Normal temperature, Normal weight bearing. No: Lamar's sign - Neurological Neuro grossly intact: Yes Cognition: Normal Orientation: AAOx4 Speedy Coma Scale Eye Opening: Spontaneous Speedy Coma Scale Verbal: Oriented Speedy Coma Scale Motor: Obeys Commands [place] Coma Scale Total: 15 Speech: Normal Motor strength normal: LUE, RUE, LLE, RLE Sensory: Normal - Psychological Associated symptoms: Normal affect, Normal mood - Skin Skin Temperature: Warm Skin Moisture: Dry Skin Color: Normal Course - Re-evaluation Re-evalutation: 06/02/19 15:33 Patient presents with several months of heavy vaginal bleeding. Her vitals are stable and her hemoglobin and hematocrit are stable. Her exam shows no significant bleeding. She has an unremarkable MEDICAL LAB SCIENTIST exam otherwise. She is not . I think she is safe to follow-up as an outpatient. 06/02/19 15:33 I will start her on some Provera and refer her to MEDICAL LAB SCIENTIST. - Vital Signs Vital signs: Temp Pulse Resp BP Pulse Ox 98.2 F 82 129/80 H 100 06/02/19 10:33 06/02/19 10:33 06/02/19 10:33 06/02/19 10:33 - Laboratory Result Diagrams: 06/02/19 10:45 06/02/19 10:45 Laboratory results interpreted by me: 06/02/19 06/02/19 10:45 10:45 MCH 26.6 L RDW 15.4 H Urine Blood LARGE H Discharge - Discharge Clinical Impression: Dysfunctional uterine bleeding Condition: Stable Disposition: HOME, SELF-CARE Instructions: Dysfunctional Uterine Bleeding ([facility]) Additional Instructions: Please call Dr. Anthony as soon as possible to arrange follow-up Prescriptions: Medroxyprogesterone Acet [Provera 10 Mg Tablet] 10 mg PO DAILY 10 Days #10 t ablet Tramadol HCl [Ultram] 50 mg PO Q6 PRN 3 Days #12 tablet PRN Reason: Referrals: EDWIN NEWBY MD [ACTIVE STAFF] - Follow up in 1 week SEJAL ANTHONY MD [ACTIVE STAFF] - Follow up in 1 week
[2019-06-02 15:56] VITALS: BP 125/71
[2019-06-02 16:19] LABS: CHLAM PCR NOT DETECTED (NOT DETECT)
== END 2019-06-02 15:56 | disposition home or self-care (01) ==
LOC: ER 10:10
DX: N93.8 Other specified abnormal uterine and vaginal bleeding (principal); R10.84 Generalized abdominal pain; N89.8 Other specified noninflammatory disorders of vagina; Z88.8 Allergy status to other drugs, medicaments and biological substances
CPT/HCPCS: 99284; 36415; 87210; 83690; 85025; 81025; 80053; 81001; 87491; 87591; S0119

== ENCOUNTER 2020-03-03 22:10 | Outpatient (CLI) | payer MEDICAID ==
[2020-03-03 23:20] LABS: BACTERIA (WET MOUNT) 4+ BACTERIA SEEN; EPITHELIALS (WET MOUNT) 3+ EPITHELIALS SEEN; T.VAGINALIS (WET MOUNT) NO TRICHOMONAS SEEN; WBCS (WET MOUNT) 4+ WBCS SEEN; YEAST (WET MOUNT) BUDDING YEAST SEEN
[2020-03-03 23:21] LABS: APPEARANCE,URINE SLIGHTLY-CLOUDY; BILIRUBIN,URINE NEGATIVE (NEGATIVE); COLOR,URINE YELLOW; GLUCOSE, URINE NEGATIVE (NEGATIVE); KETONES,URINE NEGATIVE (NEGATIVE); LEUKOCYTE ESTERASE,URINE LARGE (NEGATIVE); NITRITE,URINE NEGATIVE (NEGATIVE); PROTEIN,URINE NEGATIVE (NEGATIVE); URINE SPECIFIC GRAVITY 1.008; UROBILINOGEN,URINE NEGATIVE mg/dL (<2.0)
[2020-03-03 23:42] LABS: URINE AMPHETAMINES SCREEN NEGATIVE; URINE BARBITURATES SCREEN NEGATIVE; URINE BENZODIAZEPINES SCREEN NEGATIVE; URINE COCAINE SCREEN NEGATIVE; URINE MARIJUANA (THC) SCREEN NEGATIVE; URINE METHADONE SCREEN NEGATIVE; URINE PHENCYCLIDINE SCREEN NEGATIVE
[2020-03-04 00:47] LABS: CHLAM PCR NOT DETECTED (NOT DETECT)
[2020-03-04] MEDS ORDERED: FLUCONAZOLE 100 MG TABLET ONE (01:00)
[2020-03-04] MEDS ORDERED: CEFTRIAXONE INJ 1000 MG VIAL ONE (01:00)
[2020-03-04] MEDS ORDERED: LIDOCAINE 1% INJ-PF (10 MG/ML) 30 ML SDV ONE (01:00)
[2020-03-04] MEDS ORDERED: CEFTRIAXONE INJ 1000 MG VIAL IM ONE (01:30)
[2020-03-04] MEDS ORDERED: FLUCONAZOLE 100 MG TABLET PO ONE (01:30)
--- NOTE | 2020-03-04 01:38 | Non Stress Test Report ---
Non Stress Test Datetime Report Generated by CPN: 03/04/2020 01:38 DEMOGRAPHIC EGA NST: 32.6 INDICATION Indication for Study (NST) Other: lc/mucus plug VITAL SIGNS Temperature - NST: 98.7 Pulse - NST: 71 RESP - NST: 12 NBPSYS NST: 116 NBPDIA NST: 57 MONITORING Monitor Explained: Monitor Explained; Test Explained; Patient Verbalized Understanding Time on Monitor: 03/03/2020 22:37 Time off Monitor: 03/04/2020 01:17 NST Duration: 160 NST INTERVENTIONS NST Interventions: Reposition Patient Physician Notified NST: Dr Rowley BABY A: [id number] BABY A Movement : Present Contraction Frequency : 0 FHR Baseline : 140 Accelerations : 15X15 Decelerations : None Variability : Moderate 6-25bpm NST Review: Meets Criteria for Reactive NST NST Review and Verified By : Frank Camacho RN NST Results: Reactive NST REPORT Report Trigger: Send Report
== END 2020-03-04 01:30 | disposition home or self-care (01) ==
LOC: LC 22:10
PROVIDERS: ATTEND Student in an Organized Health Care Education/Training Program
DX: O23.43 Unspecified infection of urinary tract in pregnancy, third trimester (principal); O98.813 Other maternal infectious and parasitic diseases complicating pregnancy, third trimester; B37.9 Candidiasis, unspecified; Z3A.32 32 weeks gestation of pregnancy
CPT/HCPCS: 59025; 87086; 87210; 81001; 80307; 87491; 87591; 84112; J3490 ×2; J0696

== ENCOUNTER 2020-03-25 13:34 | Outpatient (CLI) | payer MEDICAID ==
[2020-03-25 14:42] LABS: ABSOLUTE LYMPHOCYTES (AUTO) 1.1 10^3/uL (0.5-4.7); ABSOLUTE MONOCYTES (AUTO) 0.3 10^3/uL (0.1-1.4); ABSOLUTE NEUT (AUTO) 4.5 10^3/uL (1.7-8.2); BASOPHILS % (AUTO) 0.3 % (0-2); EOSINOPHILS % (AUTO) 0.3 % (0-6); HEMATOCRIT 31.1 % (36.0-47.0); HEMOGLOBIN 10.4 g/dL (12.0-15.5); LYMPHOCYTES % (AUTO) 18.5 % (13-45); MEAN CORPUSCULAR HEMOGLOBIN 24.7 pg (27.0-33.4); MEAN CORPUSCULAR HGB CONC 33.3 g/dL (32.0-36.0); MEAN CORPUSCULAR VOLUME 74 fl (80-97); MONOCYTES % (AUTO) 5.2 % (3-13); PLATELET COUNT 169 10^3/uL (150-450); RED BLOOD COUNT 4.19 10^6/uL (3.72-5.28); RED CELL DISTRIBUTION WIDTH 17.4 % (11.5-14.0); SEGMENTED NEUTROPHILS % (AUTO) 75.7 % (42-78); TOTAL CELLS COUNTED % (AUTO) 100 %
[2020-03-25 15:03] LABS: APPEARANCE,URINE SLIGHTLY-CLOUDY; BILIRUBIN,URINE NEGATIVE (NEGATIVE); COLOR,URINE YELLOW; GLUCOSE, URINE NEGATIVE (NEGATIVE); KETONES,URINE NEGATIVE (NEGATIVE); LEUKOCYTE ESTERASE,URINE MODERATE (NEGATIVE); NITRITE,URINE NEGATIVE (NEGATIVE); PROTEIN,URINE NEGATIVE (NEGATIVE); URINE SPECIFIC GRAVITY 1.009; UROBILINOGEN,URINE NEGATIVE mg/dL (<2.0)
[2020-03-25 15:07] LABS: URINE AMPHETAMINES SCREEN NEGATIVE; URINE BARBITURATES SCREEN NEGATIVE; URINE BENZODIAZEPINES SCREEN NEGATIVE; URINE COCAINE SCREEN NEGATIVE; URINE MARIJUANA (THC) SCREEN NEGATIVE; URINE METHADONE SCREEN NEGATIVE; URINE PHENCYCLIDINE SCREEN NEGATIVE
[2020-03-25 15:14] LABS: T.VAGINALIS (WET MOUNT) NO TRICHOMONAS SEEN; YEAST (WET MOUNT) NO YEAST SEEN
[2020-03-25 15:15] LABS: BACTERIA (WET MOUNT) 3+ BACTERIA SEEN; EPITHELIALS (WET MOUNT) 4+ EPITHELIALS SEEN; RBCS (WET MOUNT) RARE RBCS SEEN; WBCS (WET MOUNT) FEW WBCS SEEN
[2020-03-25 16:51] LABS: CHLAM PCR NOT DETECTED (NOT DETECT)
[2020-03-27 15:04] LABS: HEPATITS B SURFACE ANTIGEN Negative (Negative)
== END 2020-03-25 16:45 | disposition home or self-care (01) ==
LOC: LC 13:34
PROVIDERS: ATTEND Obstetrics & Gynecology
DX: O26.893 Other specified pregnancy related conditions, third trimester (principal); R10.9 Unspecified abdominal pain; Z3A.35 35 weeks gestation of pregnancy
CPT/HCPCS: 36415; 59025; 80307; 81001; 84112; 85025; 86592; 86701; 86762; 86850; 86900; 86901; 87081; 87210; 87340; 87491; 87591

== ENCOUNTER → 2020-03-26 | Outpatient (CLI) | payer MEDICAID ==
[2020-03-26 18:34] LABS: APPEARANCE,URINE CLEAR; BILIRUBIN,URINE NEGATIVE (NEGATIVE); COLOR,URINE STRAW; GLUCOSE, URINE NEGATIVE (NEGATIVE); KETONES,URINE NEGATIVE (NEGATIVE); LEUKOCYTE ESTERASE,URINE MODERATE (NEGATIVE); NITRITE,URINE NEGATIVE (NEGATIVE); PROTEIN,URINE NEGATIVE (NEGATIVE); URINE SPECIFIC GRAVITY 1.002; UROBILINOGEN,URINE NEGATIVE mg/dL (<2.0)
[2020-03-26 18:58] LABS: URINE AMPHETAMINES SCREEN NEGATIVE; URINE BARBITURATES SCREEN NEGATIVE; URINE BENZODIAZEPINES SCREEN NEGATIVE; URINE COCAINE SCREEN NEGATIVE; URINE MARIJUANA (THC) SCREEN NEGATIVE; URINE METHADONE SCREEN NEGATIVE; URINE PHENCYCLIDINE SCREEN NEGATIVE
--- NOTE | 2020-03-26 20:12 | Non Stress Test Report ---
Non Stress Test Datetime Report Generated by CPN: 03/26/2020 20:12 DEMOGRAPHIC EGA NST: 36.1 INDICATION Indication for Study (NST) Other: >32 weeks MONITORING Monitor Explained: Monitor Explained; Test Explained; Patient Verbalized Understanding Monitor Explained: Monitor Explained; Test Explained; Patient Verbalized Understanding Time on Monitor: 03/26/2020 17:55 Time off Monitor: 03/26/2020 19:45 NST Duration: 110 NST INTERVENTIONS NST Interventions: PO Hydration NST Interventions: PO Hydration Physician Notified NST: Rowley BABY A: [id number] BABY A Movement : Present Contraction Frequency : none FHR Baseline : 145 Accelerations : 15X15 Decelerations : None Variability : Moderate 6-25bpm NST Review: Meets Criteria for Reactive NST NST Review and Verified By : Kiran Henriquez RN NST Results: Reactive NST REPORT Report Trigger: Send Report
== END ==
LOC: LC 17:39
PROVIDERS: ATTEND Student in an Organized Health Care Education/Training Program
DX: O26.893 Other specified pregnancy related conditions, third trimester (principal); R10.9 Unspecified abdominal pain; Z3A.36 36 weeks gestation of pregnancy
CPT/HCPCS: 59025; 80307; 81005

== ENCOUNTER 2020-04-01 13:38 | Outpatient (CLI) | payer MEDICAID ==
[2020-04-01 14:24] LABS: APPEARANCE,URINE CLEAR; BILIRUBIN,URINE NEGATIVE (NEGATIVE); COLOR,URINE YELLOW; GLUCOSE, URINE NEGATIVE (NEGATIVE); KETONES,URINE NEGATIVE (NEGATIVE); LEUKOCYTE ESTERASE,URINE NEGATIVE (NEGATIVE); NITRITE,URINE NEGATIVE (NEGATIVE); PROTEIN,URINE NEGATIVE (NEGATIVE); URINE SPECIFIC GRAVITY 1.014; UROBILINOGEN,URINE NEGATIVE mg/dL (<2.0)
--- NOTE | 2020-04-01 14:39 | Non Stress Test Report ---
Non Stress Test Datetime Report Generated by CPN: 04/01/2020 14:39 DEMOGRAPHIC EGA NST: 37.0 INDICATION Indication for Study (NST) Other: IUP @ 37.0 wks, LC VITAL SIGNS Temperature - NST: 98.2 Pulse - NST: 76 RESP - NST: 17 NBPSYS NST: 121 NBPDIA NST: 67 MONITORING Monitor Explained: Monitor Explained; Test Explained; Patient Verbalized Understanding Time on Monitor: 04/01/2020 13:57 Time off Monitor: 04/01/2020 14:29 NST Duration: 32 NST INTERVENTIONS NST Interventions: PO Hydration; Reposition Patient Physician Notified NST: J. Coronado, CNM BABY A: [id number] BABY A Movement : Present Contraction Frequency : None FHR Baseline : 145 Accelerations : 15X15 Decelerations : None Variability : Moderate 6-25bpm NST Review: Meets Criteria for Reactive NST NST Review and Verified By : KARYN Funes Results: Reactive NST REPORT Report Trigger: Send Report
[2020-04-01 14:48] LABS: URINE AMPHETAMINES SCREEN NEGATIVE; URINE BARBITURATES SCREEN NEGATIVE; URINE BENZODIAZEPINES SCREEN NEGATIVE; URINE COCAINE SCREEN NEGATIVE; URINE MARIJUANA (THC) SCREEN NEGATIVE; URINE METHADONE SCREEN NEGATIVE; URINE PHENCYCLIDINE SCREEN NEGATIVE
== END 2020-04-01 14:50 | disposition home or self-care (01) ==
LOC: LC 13:38
PROVIDERS: ATTEND Obstetrics & Gynecology
DX: O47.1 False labor at or after 37 completed weeks of gestation (principal); O42.92 Full-term premature rupture of membranes, unspecified as to length of time between rupture and onset of labor; Z3A.37 37 weeks gestation of pregnancy
CPT/HCPCS: 59025; 80307; 81005; 84112

== ENCOUNTER 2020-04-16 19:07 | Outpatient (CLI) | payer MEDICAID ==
[2020-04-16 20:04] LABS: APPEARANCE,URINE SLIGHTLY-CLOUDY; BILIRUBIN,URINE NEGATIVE (NEGATIVE); COLOR,URINE YELLOW; GLUCOSE, URINE NEGATIVE (NEGATIVE); KETONES,URINE NEGATIVE (NEGATIVE); LEUKOCYTE ESTERASE,URINE MODERATE (NEGATIVE); NITRITE,URINE NEGATIVE (NEGATIVE); PROTEIN,URINE NEGATIVE (NEGATIVE); UROBILINOGEN,URINE NEGATIVE mg/dL (<2.0)
[2020-04-16 20:22] LABS: URINE AMPHETAMINES SCREEN NEGATIVE; URINE BARBITURATES SCREEN NEGATIVE; URINE BENZODIAZEPINES SCREEN NEGATIVE; URINE COCAINE SCREEN NEGATIVE; URINE MARIJUANA (THC) SCREEN NEGATIVE; URINE METHADONE SCREEN NEGATIVE; URINE PHENCYCLIDINE SCREEN NEGATIVE
--- NOTE | 2020-04-16 20:50 | Non Stress Test Report ---
Non Stress Test Datetime Report Generated by CPN: 04/16/2020 20:50 DEMOGRAPHIC EGA NST: 39.1 INDICATION Indication for Study (NST) Other: lc; gestational age > 32 weeks VITAL SIGNS Temperature - NST: 99.0 Pulse - NST: 92 RESP - NST: 17 NBPSYS NST: 117 NBPDIA NST: 59 MONITORING Monitor Explained: Monitor Explained; Test Explained; Patient Verbalized Understanding Time on Monitor: 04/16/2020 19:35 Time off Monitor: 04/16/2020 20:31 NST Duration: 56 NST INTERVENTIONS NST Interventions: PO Hydration; Reposition Patient Physician Notified NST: dr morales BABY A: [id number] BABY A Movement : Present Contraction Frequency : x2 FHR Baseline : 135 Accelerations : 15X15 Decelerations : None Variability : Moderate 6-25bpm NST Review: Meets Criteria for Reactive NST NST Review and Verified By : KARYN SMITHT Results: Reactive NST REPORT Report Trigger: Send Report
== END 2020-04-16 20:47 | disposition home or self-care (01) ==
LOC: LC 19:07
PROVIDERS: ATTEND Student in an Organized Health Care Education/Training Program
DX: O47.1 False labor at or after 37 completed weeks of gestation (principal); Z3A.39 39 weeks gestation of pregnancy; Z88.8 Allergy status to other drugs, medicaments and biological substances; Z87.891 Personal history of nicotine dependence
CPT/HCPCS: 59025; 80307; 81005; 87086

== ENCOUNTER 2020-04-22 12:22 | Outpatient (CLI) | payer MEDICAID ==
[2020-04-22 13:29] LABS: APPEARANCE,URINE CLOUDY; BILIRUBIN,URINE NEGATIVE (NEGATIVE); COLOR,URINE YELLOW; GLUCOSE, URINE NEGATIVE (NEGATIVE); KETONES,URINE NEGATIVE (NEGATIVE); LEUKOCYTE ESTERASE,URINE LARGE (NEGATIVE); NITRITE,URINE NEGATIVE (NEGATIVE); PROTEIN,URINE 30 mg/dL (NEGATIVE); URINE SPECIFIC GRAVITY 1.015
--- NOTE | 2020-04-22 13:48 | Non Stress Test Report ---
Non Stress Test Datetime Report Generated by CPN: 04/22/2020 13:47 DEMOGRAPHIC EGA NST: 40.0 INDICATION Indication for Study (NST) Other: IUP @ 40.0, false labor VITAL SIGNS Temperature - NST: 99.0 Pulse - NST: 86 RESP - NST: 18 NBPSYS NST: 112 NBPDIA NST: 59 MONITORING Monitor Explained: Monitor Explained; Test Explained; Patient Verbalized Understanding Time on Monitor: 04/22/2020 12:39 Time off Monitor: 04/22/2020 13:37 NST Duration: 58 NST INTERVENTIONS NST Interventions: PO Hydration Physician Notified NST: K. Loyola CMN BABY A: [id number] BABY A Movement : Present Contraction Frequency : 0 FHR Baseline : 135 Accelerations : 15X15 Decelerations : None Variability : Moderate 6-25bpm NST Review: Meets Criteria for Reactive NST NST Review and Verified By : SAutry NST Results: Reactive NST REPORT Report Trigger: Send Report
[2020-04-22 13:50] LABS: URINE AMPHETAMINES SCREEN NEGATIVE; URINE BARBITURATES SCREEN NEGATIVE; URINE BENZODIAZEPINES SCREEN NEGATIVE; URINE COCAINE SCREEN NEGATIVE; URINE MARIJUANA (THC) SCREEN NEGATIVE; URINE METHADONE SCREEN NEGATIVE; URINE PHENCYCLIDINE SCREEN NEGATIVE
== END 2020-04-22 13:46 | disposition home or self-care (01) ==
LOC: LC 12:22
PROVIDERS: ATTEND Obstetrics & Gynecology Gynecology
DX: O47.1 False labor at or after 37 completed weeks of gestation (principal); Z3A.40 40 weeks gestation of pregnancy; Z88.8 Allergy status to other drugs, medicaments and biological substances; Z87.891 Personal history of nicotine dependence
CPT/HCPCS: 59025; 80307; 81005; 84112

== ENCOUNTER 2020-04-26 10:51 | Outpatient (CLI) | payer MEDICAID ==
[2020-04-26 11:59] LABS: APPEARANCE,URINE CLOUDY; BILIRUBIN,URINE NEGATIVE (NEGATIVE); COLOR,URINE YELLOW; GLUCOSE, URINE NEGATIVE (NEGATIVE); KETONES,URINE NEGATIVE (NEGATIVE); LEUKOCYTE ESTERASE,URINE LARGE (NEGATIVE); NITRITE,URINE NEGATIVE (NEGATIVE); PROTEIN,URINE NEGATIVE (NEGATIVE); URINE SPECIFIC GRAVITY 1.012; UROBILINOGEN,URINE NEGATIVE mg/dL (<2.0)
[2020-04-26 12:54] LABS: URINE AMPHETAMINES SCREEN NEGATIVE; URINE BARBITURATES SCREEN NEGATIVE; URINE BENZODIAZEPINES SCREEN NEGATIVE; URINE COCAINE SCREEN NEGATIVE; URINE MARIJUANA (THC) SCREEN NEGATIVE; URINE METHADONE SCREEN NEGATIVE; URINE PHENCYCLIDINE SCREEN NEGATIVE
--- NOTE | 2020-04-26 13:13 | RADIOLOGY REPORT (SQ) ---
EXAM DESCRIPTION: U/S OB 14+ TRNABD 1GES W/O DOP IMAGES COMPLETED DATE/TIME: 04/26/2020 12:55 pm REASON FOR STUDY: limited pre seamus care COMPARISON: None. TECHNIQUE: Limited transabdominal grayscale ultrasound for evaluation of specific requested obstetri sampson parameters. LIMITATIONS: None. FINDINGS: CERVICAL LENGTH: 3.5 cm. Closed. CARL: 7.0 cm. Largest volume pocket is measured 4.6 x 3.9 cm. FHR: 132 beats per minute. PRESENTATION: Breech. PLACENTA: Anterior location. ANATOMY: Inadequately assessed due to age and lie. OTHER: Estimated weight is 2864 g. estimated due date is 05/17/2020. IMPRESSION: LIMITED OBSTETRICAL ULTRASOUND WITH MEASURED PARAMETERS DELINEATED ABOVE. Trimester of : Third trimester - 28 weeks to delivery. TECHNICAL DOCUMENTATION: JOB ID: [id number] 2010 [employer]- All Rights Reserved Reading location - IP/workstation name: [email or web address]
== END 2020-04-26 14:33 | disposition home or self-care (01) ==
LOC: LC 10:51
PROVIDERS: ATTEND Obstetrics & Gynecology Gynecology
DX: O47.1 False labor at or after 37 completed weeks of gestation (principal); O09.33 Supervision of pregnancy with insufficient antenatal care, third trimester; Z3A.40 40 weeks gestation of pregnancy; Z88.8 Allergy status to other drugs, medicaments and biological substances; Z87.891 Personal history of nicotine dependence; Z03.818 Encounter for observation for suspected exposure to other biological agents ruled out
CPT/HCPCS: 59025; 87635; 81005; 80307; 76805; C9803

== ENCOUNTER 2020-04-26 15:21 | Emergency (ER) | payer MEDICAID ==
[2020-04-26 16:00] VITALS: BP 131/73
[2020-04-26] MEDS ORDERED: CLINDAMYCIN HCL 150 MG CAPSULE PO ONE (16:29)
[2020-04-26] MEDS ORDERED: MUPIROCIN 2% OINTMENT 22 GM TP ONE (16:29)
[2020-04-26] MEDS ORDERED: CEPHALEXIN 500 MG CAPSULE PO ONE (16:31)
--- NOTE | 2020-04-26 16:35 | ER Document Report ---
ED Skin Rash/Insect Bite/Abscs - General Chief Complaint: Skin Problem Stated Complaint: RASH Time Seen by Provider: 04/26/20 16:16 Primary Care Provider: CESAR ROQUE MD [Primary Care Provider] - Follow up as needed Mode of Arrival: Ambulatory Information source: Patient Notes: 23-year-old female presented to ED for concern about sores to her face finger foot and ear. She is 3 days past due for delivery of her child. She is scheduled for on . She states she went to the labor and delivery this morning they sent her to the lab to get blood work and preop but they did not give her the papers. I did speak to labor and delivery they stated they forgot to give her the papers so they faxed a copy to the lab. They stated that she needed to be in the front entrance of the emergency room and then upstairs to the floor by 7 AM on and n.p.o. after Sunday night midnight. I did check with the provider and they stated clindamycin Bactrim and Keflex were okay for this time of since she was getting a on . They did want her treated for the impetigo to her face and ear and foot before delivery. Patient has been informed of these instructions and they have been given to her in writing. Patient will be started on clindamycin Bactrim and Keflex in the emergency room and discharged home with a prescription for the same. Constitutional: Negative for fever. HENT: Negative for sore throat. Eyes: Negative for visual changes. Cardiovascular: Negative for chest pain. Respiratory: Negative for shortness of breath. Gastrointestinal: Negative for abdominal pain, vomiting or diarrhea. Patient is 40 weeks 3 days past due. Scheduled for on Genitourinary: Negative for dysuria. Musculoskeletal: Negative for back pain. Skin: Impetigo rash to the chin right ear fingers ankle and foot Neurological: Negative for headaches, weakness or numbness. 10 point ROS negative except as marked above and in HPI. PHYSICAL EXAMINATION: GENERAL: Well-appearing, well-nourished and in no acute distress. Patient is 40 weeks 3 days gestation no abdominal pain at this time. HEAD: Atraumatic, normocephalic. EYES: Pupils equal round extraocular movements intact, conjunctiva are normal. ENT: Nares patent NECK: Normal range of motion LUNGS: No respiratory distress Musculoskeletal: Normal range of motion NEUROLOGICAL: Normal speech, normal gait. PSYCH: Normal mood, normal affect. SKIN: Impetigo to chin right ear fingers ankle and foot TRAVEL OUTSIDE OF THE [place] IN LAST 30 DAYS: No - HPI Patient complains to provider of: Skin rash/lesion Onset: Last week Onset/Duration: Gradual Quality of pain: Sharp Severity: Moderate Pain Level: 2 Skin Character: Rash - Impetigo Quality of rash: Painful Identify cause: Yes Exacerbated by: Other - Palpation Relieved by: Denies Similar symptoms previously: Yes Recently seen / treated by doctor: Yes - Related Data Allergies/Adverse Reactions: amphetamine sulfate [From Adderall] Allergy (Verified 04/26/20 11:46) dextroamphetamine [From Adderall] Allergy (Verified 04/26/20 11:46) risperidone [From Risperdal] Allergy (Verified 04/26/20 11:46) Past Medical History - General Information source: Patient Last Menstrual Period: 40 weeks 3 days gestation - Social History Smoking Status: Unknown if Ever Smoked Family History: Reviewed & Not Pertinent, DM, Thyroid Disfunction Patient has suicidal ideation: No Patient has homicidal ideation: No - Past Medical History Cardiac Medical History: Reports: None Pulmonary Medical History: Reports: None EENT Medical History: Reports: None Neurological Medical History: Reports: None Endocrine Medical History: Reports: None Renal/ Medical History: Reports: None Malignancy Medical History: Reports: None GI Medical History: Reports: None Musculoskeletal Medical History: Reports None Skin Medical History: Reports None Psychiatric Medical History: Reports: Hx Attention Deficit Hyperactivity Disorder, Hx Bipolar Disorder Traumatic Medical History: Reports: None Infectious Medical History: Reports: None Past Surgical History: Reports: Hx Tonsillectomy - Immunizations Immunizations up to date: Yes Hx Diphtheria, Pertussis, Tetanus Vaccination: Yes Physical Exam - Vital signs Vitals: Temp Pulse Resp BP Pulse Ox 97.5 F 85 20 131/73 H 100 04/26/20 15:59 04/26/20 15:59 04/26/20 15:59 04/26/20 15:59 04/26/20 15:59 Course - Vital Signs Vital signs: Temp Pulse Resp BP Pulse Ox 97.5 F 85 20 131/73 H 100 04/26/20 15:59 04/26/20 15:59 04/26/20 15:59 04/26/20 15:59 04/26/20 15:59 Discharge - Discharge Clinical Impression: Impetigo Condition: Stable Disposition: HOME, SELF-CARE Additional Instructions: Impetigo You have a skin infection called impetigo. This infection is caused by germs growing between the skin layers. It spreads easily and is quite contagious. The usual treatment is with oral antibiotics, along with washing the sores and application of an antibiotic ointment. There's a new prescription antibiotic ointment which may allow some cases of impetigo to be treated without pills. Healing takes about a week. All involved areas should recover with no scarring. If there is significant worsening, or if new symptoms (such as dark urine, fever, chills, or red streaks) arise, call the doctor or return for re- examination. Cephalexin The antibiotic you've been prescribed is a member of the cephalosporin class. This type of antibiotic covers a wide variety of infections, including those of the skin, lungs, and urinary tract. It's useful for staph infections. This antibiotic is slightly similar to the penicillin family. In rare cases, a person who is allergic to penicillin will also be allergic to this medication. If you have had a severe allergic reaction to penicillin, and have not taken this antibiotic since that time, notify your doctor. Antibiotics which cover many germs ("broad spectrum" antibiotics) are more likely to cause diarrhea or "yeast" infections. Women prone to vaginal yeast problems may suffer an attack after taking this antibiotic. In infants, oral thrush (white spots "stuck" on the cheek) or yeast diaper rash may result. See your doctor if these problems occur. Call at once if you develop itching, hives, shortness of breath, or lightheadedness. Clindamycin You have been given a prescription for the antibiotic clindamycin. It is often prescribed for infections in the mouth, such as dental infections or abscesses, and for skin infections due to MRSA. It's important that you take all the medication, unless instructed otherwise by your physician. Failure to complete the entire course can result in relapse of your condition. Common side effects of antibiotics include nausea, intestinal cramping, or diarrhea. Women may develop vaginal yeast infections, and babies can get yeast (thrush) in the mouth following the use of antibiotics. Contact your physician if you develop significant side effects from this medication. Allergy to this antibiotic can result in hives, wheezing, faintness, or itching. If symptoms of allergy occur, stop the medication and call the doctor. Bactroban Ointment Bactroban is very effective against the germs that cause infection within the skin. It's useful for impetigo and other superficial infections. Deeper infections require antibiotics by mouth or by shot. Apply the medicine three times a day for one week, or longer if your doctor has advised it. Stop the medicine and call your doctor if you develop large blisters, severe itching, increasing pain, swelling, fever, or spreading redness. Soap Cleansing Gently wash the wound daily using a mild soap (like Ivory, Phisoderm, Neutrogena). Use warm water, rubbing gently until all debris, ooze, and crusting have been washed from the wound. Allow to dry briefly (about 10 minutes) after cleaning. Repeat this cleansing at least three times a day for the first two days and then once or twice a day. Have spoken to labor and delivery. They states you are to be to the front entrance and check can and be upstairs on labor and delivery by 7 AM on . Nothing to eat after midnight on Sunday. You are scheduled for your on . I have spoken with the nurse practitioner on labor and delivery and they are aware you will be on Keflex Bactroban and clindamycin. Prescriptions: Mupirocin [Bactroban 2% Ointment 22 gm] 1 applic TP TID #1 tube Clindamycin HCl 300 mg PO TID #30 capsule Cephalexin Monohydrate [Keflex 500 mg Capsule] 500 mg PO Q6H 5 Days #20 capsule Referrals: CESAR ROQUE MD [Primary Care Provider] - Follow up as needed
== END 2020-04-26 17:06 | disposition home or self-care (01) ==
LOC: ER 15:21
DX: O99.713 Diseases of the skin and subcutaneous tissue complicating pregnancy, third trimester (principal); L01.00 Impetigo, unspecified; Z3A.40 40 weeks gestation of pregnancy; Z88.8 Allergy status to other drugs, medicaments and biological substances
CPT/HCPCS: 99283; J3490 ×2

== ENCOUNTER 2020-04-27 11:15 | Outpatient (CLI) | payer MEDICAID ==
[2020-04-27 11:59] LABS: APPEARANCE,URINE CLEAR; BILIRUBIN,URINE NEGATIVE (NEGATIVE); COLOR,URINE YELLOW; GLUCOSE, URINE NEGATIVE (NEGATIVE); KETONES,URINE NEGATIVE (NEGATIVE); LEUKOCYTE ESTERASE,URINE LARGE (NEGATIVE); NITRITE,URINE NEGATIVE (NEGATIVE); PROTEIN,URINE NEGATIVE (NEGATIVE); URINE SPECIFIC GRAVITY 1.012; UROBILINOGEN,URINE NEGATIVE mg/dL (<2.0)
[2020-04-27 12:19] LABS: URINE AMPHETAMINES SCREEN NEGATIVE; URINE BARBITURATES SCREEN NEGATIVE; URINE BENZODIAZEPINES SCREEN NEGATIVE; URINE COCAINE SCREEN NEGATIVE; URINE MARIJUANA (THC) SCREEN NEGATIVE; URINE METHADONE SCREEN NEGATIVE; URINE PHENCYCLIDINE SCREEN NEGATIVE
--- NOTE | 2020-04-27 12:22 | Non Stress Test Report ---
Non Stress Test Datetime Report Generated by CPN: 04/27/2020 12:22 DEMOGRAPHIC Test Number: 5 Test Number: 6 EGA NST: 40.5 EGA NST: 40.4 INDICATION Indication for Study (NST) Other: Provider Order, Not in Labor Indication for Study (NST) Other: LC for abdominal and back pain VITAL SIGNS Temperature - NST: 97.8 Temperature - NST: 98.8 Pulse - NST: 73 Pulse - NST: 77 RESP - NST: 16 RESP - NST: 16 NBPSYS NST: 102 NBPSYS NST: 124 NBPDIA NST: 51 NBPDIA NST: 71 MONITORING Monitor Explained: Monitor Explained; Test Explained; Patient Verbalized Understanding Monitor Explained: Monitor Explained; Test Explained; Patient Verbalized Understanding Time on Monitor: 04/27/2020 11:37 Time on Monitor: 04/26/2020 11:07 Time off Monitor: 04/27/2020 12:03 Time off Monitor: 04/26/2020 12:30 NST Duration: 26 NST Duration: 83 NST INTERVENTIONS NST Interventions: None NST Interventions: PO Hydration Physician Notified NST: Isann,CNM Physician Notified NST: Drew Loyola CNM BABY A: [id number] BABY A Movement : Present Movement : Present Contraction Frequency : None Contraction Frequency : none FHR Baseline : 130 FHR Baseline : 130 Accelerations : 15X15 Accelerations : 15X15 Decelerations : None Decelerations : None Variability : Moderate 6-25bpm Variability : Moderate 6-25bpm NST Review: Meets Criteria for Reactive NST NST Review: Meets Criteria for Reactive NST NST Review and Verified By : Erasto CRISTINA Results: Reactive NST Results: Reactive NST REPORT Report Trigger: Send Report
== END 2020-04-27 12:24 | disposition home or self-care (01) ==
LOC: LC 11:15
PROVIDERS: ATTEND Obstetrics & Gynecology
DX: O47.1 False labor at or after 37 completed weeks of gestation (principal); Z3A.40 40 weeks gestation of pregnancy; Z88.8 Allergy status to other drugs, medicaments and biological substances; Z87.891 Personal history of nicotine dependence
CPT/HCPCS: 59025; 80307; 81005

== ENCOUNTER 2020-04-28 09:36 | Inpatient (IN) | payer MEDICAID ==
[2020-04-28 10:29] LABS: APPEARANCE,URINE SLIGHTLY-CLOUDY; BILIRUBIN,URINE NEGATIVE (NEGATIVE); COLOR,URINE YELLOW; GLUCOSE, URINE NEGATIVE (NEGATIVE); KETONES,URINE NEGATIVE (NEGATIVE); LEUKOCYTE ESTERASE,URINE LARGE (NEGATIVE); NITRITE,URINE NEGATIVE (NEGATIVE); PROTEIN,URINE 30 mg/dL (NEGATIVE); URINE SPECIFIC GRAVITY 1.024
[2020-04-28] MEDS ORDERED: RINGERS SOLUTION,LACTATED 1,000 ML IV PRN (10:45)
[2020-04-28 10:51] LABS: URINE AMPHETAMINES SCREEN NEGATIVE; URINE BARBITURATES SCREEN NEGATIVE; URINE BENZODIAZEPINES SCREEN NEGATIVE; URINE COCAINE SCREEN NEGATIVE; URINE MARIJUANA (THC) SCREEN NEGATIVE; URINE METHADONE SCREEN NEGATIVE; URINE PHENCYCLIDINE SCREEN NEGATIVE
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
[2020-04-28] MEDS ORDERED: LIDOCAINE 1% INJ-PF (10 MG/ML) 30 ML SDV ONE (11:16)
[2020-04-28] MEDS ORDERED: MISOPROSTOL 0.2 MG TABLET ONE (11:16)
[2020-04-28] MEDS ORDERED: OXYTOCIN/0.9 % SODIUM CHLORIDE 30 UNIT/500 ML RTUINJ ONE (11:16)
[2020-04-28] MEDS ORDERED: OXYTOCIN 10 UNIT/ML VIAL ONE (11:16)
--- NOTE | 2020-04-28 11:30 | PDOC H&P ---
History of Present Illness Admission Date/PCP: 04/28/20 10:37 CHRIS PENNINGTON MD History of Present Illness: COLTON RIVERA is a 24 year old female Past Medical History Psychiatric Medical History: Reports: Attention Deficit Hyperactivity Disorder, Bipolar Disorder Past Surgical History Past Surgical History: Reports: Tonsillectomy Social History Smoking Status: Former Smoker Frequency of Alcohol Use: None Hx Recreational Drug Use: No Drugs: None Family History Family History: Reviewed & Not Pertinent, DM, Thyroid Disfunction Parental Family History Reviewed: Yes - see centricity Children Family History Reviewed: Unknown Sibling(s) Family History Reviewed.: Unknown Medication/Allergy Home Medications: Cephalexin Monohydrate [Keflex 500 mg Capsule] 500 mg PO Q6H 5 Days #20 capsule 04/26/20 Clindamycin HCl 300 mg PO TID #30 capsule 04/26/20 Mupirocin [Bactroban 2% Ointment 22 gm] 1 applic TP TID #1 tube 04/26/20 Allergies/Adverse Reactions: amphetamine sulfate [From Adderall] Allergy (Verified 04/28/20 09:48) dextroamphetamine [From Adderall] Allergy (Verified 04/28/20 09:48) risperidone [From Risperdal] Allergy (Verified 04/28/20 09:48) Physical Exam - Physical Exam Vital Signs: Intake & Output 04/27/20 04/28/20 04/29/20 06:59 06:59 06:59 Weight 85.5 kg Result Laboratory Results: 04/28/20 09:45 Urine Color YELLOW Urine Appearance SLIGHTLY-CLOUDY Urine pH 6.0 Ur Specific Monitor 1.024 Urine Protein 30 H Urine Glucose (UA) NEGATIVE Urine Ketones NEGATIVE Urine Blood LARGE H Urine Nitrite NEGATIVE Ur Leukocyte Esterase LARGE H Assessment & Plan - Time Anticipated Discharge Disposition: Home, Self Care Anticipated Discharge Timeframe: within 48 hours Provider Note Provider Note: actual H&P on [facility]. Pt reported active MRSA infection which is listed on H&P but pt has impetigo and never had cultures done. No confirmed case of MRSA
[2020-04-28] MEDS ORDERED: EPHEDRINE SULFATE INJ 50 MG/1 ML AMPULE ONE (12:12)
[2020-04-28] MEDS ORDERED: FENTANYL/BUPIVACAINE/NS/PF 300 MCG/150 ML RTUINJ EPI ONE (12:12)
[2020-04-28] MEDS ORDERED: ROPIVACAINE HCL 0.2% INJ/PF (2 MG/ML) 20 ML SDV ONE (12:13)
[2020-04-28 12:31] LABS: ABSOLUTE LYMPHOCYTES (AUTO) 1.3 10^3/uL (0.5-4.7); ABSOLUTE MONOCYTES (AUTO) 0.3 10^3/uL (0.1-1.4); ABSOLUTE NEUT (AUTO) 6.1 10^3/uL (1.7-8.2); BASOPHILS % (AUTO) 0.6 % (0-2); EOSINOPHILS % (AUTO) 0.2 % (0-6); HEMOGLOBIN 10.5 g/dL (12.0-15.5); LYMPHOCYTES % (AUTO) 16.7 % (13-45); MEAN CORPUSCULAR HEMOGLOBIN 24.1 pg (27.0-33.4); MEAN CORPUSCULAR HGB CONC 32.7 g/dL (32.0-36.0); MEAN CORPUSCULAR VOLUME 74 fl (80-97); MONOCYTES % (AUTO) 3.6 % (3-13); PLATELET COUNT 182 10^3/uL (150-450); RED BLOOD COUNT 4.34 10^6/uL (3.72-5.28); SEGMENTED NEUTROPHILS % (AUTO) 78.9 % (42-78); TOTAL CELLS COUNTED % (AUTO) 100 %; WHITE BLOOD COUNT 7.8 10^3/uL (4.0-10.5)
[2020-04-28] MEDS ORDERED: OXYTOCIN/0.9 % SODIUM CHLORIDE 30 UNIT/500 ML RTUINJ IV PRN ×2 (15:54→17:13)
[2020-04-28] MEDS ORDERED: CEPHALEXIN 500 MG CAPSULE ONE (16:00)
[2020-04-28] MEDS: CLINDAMYCIN HCL 150 MG CAPSULE PO SCH ×2 (16:05→22:14)
[2020-04-28] MEDS: CEPHALEXIN 500 MG CAPSULE PO SCH (16:05)
--- NOTE | 2020-04-28 16:24 | L&D Progress Notes ---
PROGRESS NOTES Datetime Report Generated by CPN: 04/28/2020 16:24 PROGRESS NOTE Impression Other: IUP @ 40w6d Procedures: Artificial ROM; Sterile Vag Exam Plan: Augmentation Informed Consent Obtained: Vaginal Delivery; Induction of Labor; Risks, Benefits and Alternatives Discussed Vital Signs : Reviewed; Within Normal Limits Comment: S: comfortable with epidural placement, no concerns at this time O: VSS, cat I tracing, cervix as stated A: IUP @ 40w6d in labor and cephalic on admission, cervix unchanged since admission, SROM this am with palpable forebag AROM of forebag-clear fluid moderate amount dx with impetigo earlier this week ( never picked up meds, had first dose in ER, will start oral antibiotics at this time, Pt had reported MRSA but only dx at this time is impetigo, correction made on [employer]) P: augment with pitocin at this time, anticipate delivery VAGINAL EXAM Contractions: irregular LAST VAGINAL EXAM-NURSING Nursing Exam Dilitation: 6.0 Nursing Exam Effacement: 100 Nursing Exam Station: 0 Nursing Exam Contractions: RN adjusting monitors MEMBRANES Membranes: Ruptured Amniotic Fluid Color: Clear FETUS A Monitoring: External US FHR Category: Category I Presentation: Vertex SIGNATURE SIGNATURE: [id number] Assignment: Joe Monsalve MD Signature: with User ID: Tye : with User ID: [email or web address]
[2020-04-28] MEDS ORDERED: PROMETHAZINE HCL 25 MG TABLET PO PRN (17:13)
[2020-04-28] MEDS ORDERED: BENZOCAINE/MENTHOL AEROSOL SPRAY 56 ML TOP PRN (17:13)
[2020-04-28] MEDS ORDERED: GLYCERIN/WITCH HAZEL LEAF 1 EACH MED..WIPE TP PRN (17:13)
[2020-04-28] MEDS ORDERED: ACETAMINOPHEN WITH CODEINE #3 TABLET PO PRN ×2 (17:13)
[2020-04-28] MEDS ORDERED: DIPH/PERTUSS(ACELL)/TETANUS VAC/PF 0.5 ML SYR (>=10YO) IM PRN (17:13)
[2020-04-28] MEDS ORDERED: ZOLPIDEM TARTRATE 5 MG TABLET PO PRN (17:13)
[2020-04-28] MEDS ORDERED: PROMETHAZINE HCL INJ 25 MG/1 ML VIAL IV PRN (17:13)
[2020-04-28] MEDS ORDERED: DIPHENHYDRAMINE HCL 25 MG CAPSULE PO PRN (17:13)
[2020-04-28] MEDS ORDERED: MAGNESIUM HYDROXIDE SUSP 30 ML UDCUP PO PRN (17:13)
[2020-04-28] MEDS ORDERED: PROMETHAZINE HCL 25 MG SUPP.RECT PR PRN (17:13)
[2020-04-28] MEDS ORDERED: NA PHOS,M-B/NA PHOS,DI-BA (ADULT) 133 ML ENEMA PR PRN (17:13)
[2020-04-28] MEDS ORDERED: DIBUCAINE 1% OINTMENT 28 GM TP PRN (17:13)
[2020-04-28] MEDS ORDERED: ACETAMINOPHEN 650 MG SUPP.RECT PR PRN (17:13)
[2020-04-28] MEDS ORDERED: MEASLES,MUMPS&RUBELLA VACC/PF 0.5 ML VIAL SUBCUT PRN (17:13)
[2020-04-28] MEDS ORDERED: PSEUDOEPHEDRINE HCL 30 MG TABLET PO PRN (17:13)
--- NOTE | 2020-04-28 18:04 | Warning Signs in Babies ---
VOD Warning Signs Datetime Report Generated by [facility]: 04/28/2020 18:04 VOD#608 -Warning Signs in Babies: Needs to be viewed. (03/03/2020 22:29:Kay Lucas RN)
[2020-04-28] MEDS ORDERED: DOCUSATE SODIUM 100 MG CAPSULE ONE (18:45)
[2020-04-28] MEDS ORDERED: FERROUS SULFATE 325 MG TABLET PO ONE (18:46)
[2020-04-28] MEDS: DOCUSATE SODIUM 100 MG CAPSULE PO SCH (18:51)
[2020-04-28] MEDS: FERROUS SULFATE 325 MG TABLET PO SCH (18:51)
--- NOTE | 2020-04-28 20:12 | Delivery Summary ---
Del Sum A-C Datetime Report Generated by CPN: 04/28/2020 20:11 DELIVERY PERSONNEL DELIVERY PERSONNEL: [id number] Delivery Doctor:: Joe Monsalve MD Labor and Delivery Nurse:: Kay Lucas RNhead boys tennis coach Nurse:: ANUJ Santos Otolaryngology Surgeon/SERVICE SPRINKLER HELPER: Diana Durham, PNEUDRAULIC SYSTEMS MECHANIC MATERNAL INFORMATION Delivery Anesthesia: Epidural Medications After Delivery: Pitocin Bolus-Please Comment; Pitocin 30 Units in 500ml NS/D5W Meds After Delivery Comment: per order Estimated Blood Loss (ml): 250 Delivery QBL: 200 Maternal Complications: Other Complication Details: contact precautions LABOR SUMMARY EDC: 04/22/2020 00:00 No. Babies in Womb: 1 Attempted: No Labor Anesthesia: Epidural LABOR INFORMATION Reason for Induction: Not Applicable Onset of Labor: 04/28/2020 07:00 Complete Dilatation: 04/28/2020 16:53 Oxytocin: Augmentation Group B Beta Strep: 1 NO GROUP B STREPTOCOCCUS RECOVERED Antibiotics # of Doses: 0 Steroids Given: None Reason Steroids Not Administered: Not Applicable MEMBRANES Membranes Rupture Method: Spontaneous Rupture of Membranes: 04/28/2020 02:00 Length of Rupture (hr): 15.58 Amniotic Fluid Color: Clear Amniotic Fluid Amount: Small Amniotic Fluid Odor: Normal STAGES OF LABOR Stage 1 hr: 9 Stage 1 min: 53 Stage 2 hr: 0 Stage 2 min: 42 Stage 3 hr: 0 Stage 3 min: 5 Total Time in Labor hr: 10 Total Time in Labor min: 40 VAGINAL DELIVERY Episiotomy: None Laceration #1: None Laceration Extension #1: N/A Laceration Repair: Not Applicable Sponge Count Correct: N/A; Vaginal Sweep Performed Sharps Count Correct: N/A CSECTION DELIVERY Primary Indication: N/A Secondary Indication: N/A CSection Incidence: N/A Labor: N/A Elective: N/A CSection Incision: N/A BABY A INFORMATION Infant Delivery Date/Time: 04/28/2020 17:35 Method of Delivery: Vaginal Nurse Controlled Delivery: No Born in Route : No : N/A Forceps: N/A Vacuum Extraction: N/A Shoulder Dystocia : No PRESENTATION/POSITION BABY A Presentation: Cephalic Cephalic Presentation: Vertex Vertex Position: Left Occipital Transverse Breech Presentation: N/A PLACENTA INFORMATION BABY A Placenta Delivery Time : 04/28/2020 17:40 Placenta Method of Delivery: Spontaneous Placenta Status: Delivered SCORES BABY A Heart Rate 1 min: >100 bpm Resp Effort 1 min: Good Cry Reflex Irritability 1 min: Cough or Sneeze or Pulls Away Muscle Tone 1 min: Active Motion Color 1 min: Body [place], Extremities Blue Resuscitation Effort 1 min: Tactile Stimulation SCORE 1 MIN: 9 Heart Rate 5 min: >100 bpm Resp Effort 5 min: Good Cry Reflex Irritability 5 min: Cough or Sneeze or Pulls Away Muscle Tone 5 min: Active Motion Color 5 min: Body [place], Extremities Blue Resuscitation Effort 5 min: N/A SCORE 5 MIN: 9 Resuscitation Effort 10 min: N/A INFANT INFORMATION BABY A Gestational Age at Delivery: 40.6 Gestational Status: Full Term- 39- 40.6 Weeks Infant Outcome : Liveborn Condition : Stable Sex: Female IDENTIFICATION BABY A Verification Date/Time: 04/28/2020 18:05 ID Band Number: [id number] Mother's Name Verified: Yes RN Verifying Infant: CTrevin Mcbrideck RN ; M. Krishna, RN WEIGHT/LENGTH BABY A Infant Birthweight (gm): 3090 Weight (lb): 6 Weight (oz): 13 Length (in): 20.50 Length (cm): 52.07 CORD INFORMATION BABY A No. Cord Vessels: 3 Nuchal Cord : N/A Cord Blood Taken: Yes-For Storage (Mom's Blood type +) Infant Suction: None ASSESSMENT BABY A Complications: None Physical Findings at Delivery: Within Normal Limits Physical Findings- Other: see nursery record for initial delivery steps and assessment Infant Respirations: Appears Normal Skin to Skin: Yes Skin to Skin Time (min): 60 Color Straining Bag Washer/ALS Called : No Care By: Nenita Garcia RN Transferred To: Remains with Mother BABY B INFORMATION : N/A SIGNATURES Signature: with User ID: [email or web address]
--- NOTE | 2020-04-28 20:12 | Birth Certificate Data ---
Cert Data Datetime Report Generated by CPN: 04/28/2020 20:11 CERTIFICATE DATA 47a. Care: No (03/03/2020 22:29:Joel Wang RN) 47b. Date of First Visit: 01/20/2020 00:00 (03/03/2020 22:29:ANUJ Santos) 47c. Date of Last Visit: 01/21/2020 00:00 (03/03/2020 22:29:Kay Lucas RN) 47d. Number of Visits: 3 (03/03/2020 22:29:Kay Lucas RN) 48a. Number of Prev Live Births: 4 (03/03/2020 22:29:Kay Lucas RN) 48b. Now Livin (03/03/2020 22:29:ANUJ Hector) 48c. Live Births Now : 0 (03/03/2020 22:29:[facility] system process) 48d. Date of Last Live : 02/25/2019 00:00 (03/03/2020 22:29:[facility]) 48e. Losses: 2 (03/03/2020 22:29:[facility] [place]) 48f. Date of Last Preg Loss: 01/04/2018 00:00 (03/03/2020 22:29:[facility] [place]) RISK FACTORS IN THIS 49a. Diabetes: No (03/03/2020 22:29:Joel Wang RN) 49b. Hypertension: No (03/03/2020 22:29:Joel Wang RN) 49c. Previous Births: 0 (03/03/2020 22:29:ANUJ Hector) 49d. Stillborns: No (03/03/2020 22:29:Kay Lucas RN) 49d. IUGR: No (03/03/2020 22:29:Joel Wang RN) 49e. Infertility Treatment: No (03/03/2020 22:29:Joel Wang RN) 49f. Previous Cesareans: 0 (03/03/2020 22:29:Joel Wang RN) Mother's Height 50b. Height Inches: 62 (04/28/2020 09:49:[facility] system process) Mother's Weight 51a. Pre- Weight (lbs): 170 (03/03/2020 22:29:Kay Lucas RN) 51b. Weight at Delivery (lbs): 189 (04/28/2020 09:49:[facility] system process) Infections Present/Treated 53a. Gonorrhea: Yes (03/03/2020 22:29:Joel Wang RN) Results this Hospital Visit : Negative (03/03/2020 22:29:Cyndi Cabrera RN) 53b. Syphilis: No (03/03/2020 22:29:Joel Wang RN) Results this Hospital Visit: NONREACTIVE (03/25/2020 14:22:[facility] system process) 53c. Chlamydia: No (03/03/2020 22:29:Joel Wang RN) Results this Hospital Visit: Negative (03/03/2020 22:29:Cyndi Cabrera RN) 53d. Hepatitis B: No (03/03/2020 22:29:Joel Wang RN) Results this Hospital Visit: Negative (03/03/2020 22:29:Joel Wagn RN) 53h. Mother Tested for HBsAG: Yes (03/03/2020 22:29:Dawn KAYRN Gilman) 53i. Date Tested: 03/25/2020 00:00 (03/03/2020 22:29:Dawn Gilman RN) 53j. Test Result: Negative (03/03/2020 22:29:Joel Wang RN) Obstetric Procedures 54a, b, c. Obstetric Procedures: Ultrasound (03/03/2020 22:29:Joel Wang RN) Cigarette Smoking Cigarette Smoking: Former Smoker. [id number] (03/03/2020 22:29:Joel Wang RN) 55a. 3 Months Before Preg - Ci (03/03/2020 22:29:Joel Wang RN) 55b. 1st Trimester of Preg- Ci (03/03/2020 22:29:Joel Wang RN) 55c. 2nd Trimester of Preg- Ci (03/03/2020 22:29:Joel Wang RN) 55d. 3rd Trimester of Preg- Ci (03/03/2020 22:29:Joel Wang RN) Onset of Labor 56a. PROM >12 Hrs: 15.58 (03/03/2020 22:29:[facility] system process) 56b. Precipitous Labor <3 Hrs: 10 (03/03/2020 22:29:[facility] system process) 56c. Prolonged Labor > 20 Hrs: 10 (03/03/2020 22:29:QS system process) 57a. Induction of Labor: Augmentation (03/03/2020 22:29:Kay Lucas RN) 57c. Non-Vertex Presentation A: Vertex (03/03/2020 22:29:Kay Lucas RN) 57d. Steroids - Lung Mat: None (03/03/2020 22:29:Kay Lucsa RN) 57d. Steroids - Lung Mat: Not Applicable (03/03/2020 22:29:Kay Lucas RN) 57f. Mat [place] or Temp >100.4: 98.9 (03/03/2020 22:29:Kay Lucas RN) 57g. Moderate/Heavy Meconium: Clear (04/28/2020 15:18:Kay Lucas RN) 57h. Intolerance of Labor: N/A (03/03/2020 22:29:Kay Lucas RN) : N/A (03/03/2020 22:29:Kay Lucas RN) 57i. Epidural/Spinal Anesthesia: Epidural (03/03/2020 22:29:Kay Lucas RN) Method of Delivery 58a. Forceps - Unsuccessful A: N/A (03/03/2020 22:29:Kay Lucas RN) 58b. Vacuum - Unsuccessful A: N/A (03/03/2020 22:29:Kay Lucas RN) 58c. Presentation at 58c. Presentation at - A : Vertex (03/03/2020 22:29:Kay Lucas RN) 58c. Presentation at - A : N/A (03/03/2020 22:29:Kay Lucas RN) 58c. Presentation at - A : Cephalic (04/28/2020 16:33:Kay Lucas RN) Final Route and Method of Del 58d. Baby A Route/Delivery: Vaginal (04/28/2020 17:35:Kay Lucas RN) 58e. Trial of Labor Attempted: No (03/03/2020 22:29:Kay Lucas RN) 58e. Trial of Labor Attempted A: N/A (03/03/2020 22:29:Kay Lucas RN) 58e. Trial of Labor Attempted B: N/A (03/03/2020 22:29:Kay Lucas RN) Maternal Morbidity 59b. 3rd or 4th Degree Lacs: None (03/03/2020 22:29:Kay Van Zandt, RN) Birthweight Baby A: 3090 (03/03/2020 22:29:Lou Garcia, RN) 60a. Pounds : 6 (03/03/2020 22:29:[facility] system process) 60b. Ounces: 13 (03/03/2020 22:29:QS system process) 61. GA at Delivery Baby A: 40.6 (03/03/2020 22:29:Kaymayra Lucas RN) : Full Term- 39- 40.6 Weeks (03/03/2020 22:29:QS system process) 62a. 5 Minute Baby A: 9 (03/03/2020 22:29:QS system process)
[2020-04-28] MEDS: IBUPROFEN 800 MG TABLET PO SCH (22:02)
[2020-04-28] MEDS: FAMOTIDINE 20 MG TABLET PO SCH (22:02)
[2020-04-29] MEDS: CEPHALEXIN 500 MG CAPSULE PO SCH ×4 (00:04→17:34)
[2020-04-29] MEDS ORDERED: CEPHALEXIN 500 MG CAPSULE ONE ×4 (06:21→17:19)
[2020-04-29] MEDS: CLINDAMYCIN HCL 150 MG CAPSULE PO SCH ×3 (06:28→22:25)
[2020-04-29] MEDS: IBUPROFEN 800 MG TABLET PO SCH ×3 (06:29→22:17)
[2020-04-29 07:01] LABS: HEMATOCRIT 30.7 % (36.0-47.0); MEAN CORPUSCULAR HEMOGLOBIN 24.2 pg (27.0-33.4); MEAN CORPUSCULAR HGB CONC 32.7 g/dL (32.0-36.0); MEAN CORPUSCULAR VOLUME 74 fl (80-97); PLATELET COUNT 163 10^3/uL (150-450); RED BLOOD COUNT 4.15 10^6/uL (3.72-5.28); RED CELL DISTRIBUTION WIDTH 17.8 % (11.5-14.0); WHITE BLOOD COUNT 8.7 10^3/uL (4.0-10.5)
[2020-04-29] MEDS: FAMOTIDINE 20 MG TABLET PO SCH ×2 (09:14→22:17)
[2020-04-29] MEDS: SENNOSIDES/DOCUSATE 8.6-50 MG 1 EACH TABLET PO SCH (09:14)
[2020-04-29] MEDS: PRENATAL VITAMIN W DHA CAPSULE PO SCH (09:14)
[2020-04-29] MEDS: DOCUSATE SODIUM 100 MG CAPSULE PO SCH ×2 (09:14→17:35)
[2020-04-29] MEDS: FERROUS SULFATE 325 MG TABLET PO SCH ×2 (09:14→17:35)
--- NOTE | 2020-04-29 09:16 | PDOC PROGRESS REPORT ---
Subjective-OB Progress Note for:: 04/29/20 Physical Exam (OB) Vital Signs: Temp Pulse Resp BP Pulse Ox 97.9 F 52 L 17 126/64 H 100 04/29/20 08:37 04/29/20 08:37 04/29/20 08:37 04/29/20 08:37 04/29/20 08:37 Intake & Output 04/28/20 04/29/20 04/30/20 06:59 06:59 06:59 Intake Total 1000 Output Total 700 Balance 300 Weight 85.5 kg - PIH/Pre-Eclampsia Clonus: Negative Headache: Absent Epigastric Pain: No Visual Changes: No - Maternal Morbidity 59. Maternal Morbidity (serious complications experinced by the mother associated with labor and delivery: None of the above - Lochia Lochia Amount: Scant < 10 ml Lochia Color: Rubra/Red - Abdomen Description: Soft, Round Hernia Present: No Bowel Sounds: Normoactive Flatus Presence: Present Stool: No Fundal Description: Firm, Midline Fundal Height: u/u - u/2 Objective-Diagnostic Laboratory: 04/29/20 06:24 04/28/20 04/28/20 04/28/20 09:45 10:42 10:42 WBC RBC Hgb Hct MCV MCH MCHC RDW Plt Count Seg Neutrophils % TSH 1.30 Urine Color YELLOW Urine Appearance SLIGHTLY-CLOUDY Urine pH 6.0 Ur Specific [place] 1.024 Urine Protein 30 H Urine Glucose (UA) NEGATIVE Urine Ketones NEGATIVE Urine Blood LARGE H Urine Nitrite NEGATIVE Ur Leukocyte Esterase LARGE H Blood Type A POSITIVE Antibody Screen NEGATIVE 04/28/20 04/29/20 10:42 06:24 WBC 7.8 8.7 RBC 4.34 4.15 Hgb 10.5 L 10.0 L Hct 32.0 L 30.7 L MCV 74 L 74 L MCH 24.1 L 24.2 L MCHC 32.7 32.7 RDW 18.0 H 17.8 H Plt Count 182 163 Seg Neutrophils % 78.9 H TSH Urine Color Urine Appearance Urine pH Ur Specific [place] Urine Protein Urine Glucose (UA) Urine Ketones Urine Blood Urine Nitrite Ur Leukocyte Esterase Blood Type Antibody Screen Assessment and Plan(PN) - Time Spent with Patient Time with patient: Less than 15 minutes Medications reviewed and adjusted accordingly: Yes - Disposition Anticipated Discharge Disposition: Home, Self Care Anticipated Discharge Timeframe: within 36 hours
[2020-04-29] MEDS ORDERED: DIPH/PERTUSS(ACELL)/TETANUS VAC/PF 0.5 ML SYR (>=10YO) IM PRN (15:30)
[2020-04-29] MEDS ORDERED: PROMETHAZINE HCL INJ 25 MG/1 ML VIAL IV PRN (15:30)
[2020-04-29] MEDS ORDERED: MEASLES,MUMPS&RUBELLA VACC/PF 0.5 ML VIAL SUBCUT PRN (15:30)
[2020-04-30] MEDS ORDERED: CEPHALEXIN 500 MG CAPSULE ONE ×2 (00:09→05:42)
[2020-04-30] MEDS: CEPHALEXIN 500 MG CAPSULE PO SCH ×3 (00:20→11:16)
[2020-04-30] MEDS: CLINDAMYCIN HCL 150 MG CAPSULE PO SCH (05:46)
[2020-04-30] MEDS: IBUPROFEN 800 MG TABLET PO SCH (05:47)
[2020-04-30] MEDS: DOCUSATE SODIUM 100 MG CAPSULE PO SCH (09:47)
[2020-04-30] MEDS: FAMOTIDINE 20 MG TABLET PO SCH (09:47)
[2020-04-30] MEDS: FERROUS SULFATE 325 MG TABLET PO SCH (09:47)
[2020-04-30] MEDS: PRENATAL VITAMIN W DHA CAPSULE PO SCH (09:47)
[2020-04-30] MEDS: SENNOSIDES/DOCUSATE 8.6-50 MG 1 EACH TABLET PO SCH (09:47)
--- NOTE | 2020-04-30 10:20 | PDOC DISCHARGE SUMMARY ---
Impression - Admit/DC Date/PCP Admission Date/Primary Care Provider: 04/28/20 10:37 CHRIS PENNINGTON MD Discharge Date: 04/30/20 - Discharge Diagnosis (1) Delivery normal Is this a current diagnosis for this admission?: Yes (2) History depression and anxiety Is this a current diagnosis for this admission?: Yes (3) Limited care Is this a current diagnosis for this admission?: Yes - Additional Information Discharge Diet: Regular Discharge Activity: Balance Activity w/Rest, Pelvic Rest Referrals: CHRIS PENNINGTON MD [Primary Care Provider] - Prescriptions: Ibuprofen [Motrin 800 mg Tablet] 800 mg PO Q8HP PRN #60 tablet PRN Reason: Vit/Dha [ Multi + Dha Capsule] 1 cap PO DAILY #90 capsule Home Medications: Cephalexin Monohydrate [Keflex 500 mg Capsule] 500 mg PO Q6H 5 Days #20 capsule 04/26/20 Clindamycin HCl 300 mg PO TID #30 capsule 04/26/20 Ibuprofen [Motrin 800 mg Tablet] 800 mg PO Q8HP PRN #60 tablet 04/30/20 Vit/Dha [ Multi + Dha Capsule] 1 cap PO DAILY #90 capsule 04/30/20 Hospital Course 59. Maternal Morbidity (serious complications experinced by the mother associated with labor and delivery: None of the above Results Laboratory Results: WBC 8.7 10^3/uL (4.0-10.5) 04/29/20 06:24 RBC 4.15 10^6/uL (3.72-5.28) 04/29/20 06:24 Hgb 10.0 g/dL (12.0-15.5) L 04/29/20 06:24 Hct 30.7 % (36.0-47.0) L 04/29/20 06:24 MCV 74 fl (80-97) L 04/29/20 06:24 MCH 24.2 pg (27.0-33.4) L 04/29/20 06:24 MCHC 32.7 g/dL (32.0-36.0) 04/29/20 06:24 RDW 17.8 % (11.5-14.0) H 04/29/20 06:24 Plt Count 163 10^3/uL (150-450) 04/29/20 06:24 Lymph % (Auto) 16.7 % (13-45) 04/28/20 10:42 [place] % (Auto) 3.6 % (3-13) 04/28/20 10:42 Eos % (Auto) 0.2 % (0-6) 04/28/20 10:42 Baso % (Auto) 0.6 % (0-2) 04/28/20 10:42 Absolute Neuts (auto) 6.1 10^3/uL (1.7-8.2) 04/28/20 10:42 Absolute Lymphs (auto) 1.3 10^3/uL (0.5-4.7) 04/28/20 10:42 Absolute Monos (auto) 0.3 10^3/uL (0.1-1.4) 04/28/20 10:42 Absolute Eos (auto) 0.0 10^3/uL (0.0-0.6) 04/28/20 10:42 Absolute Basos (auto) 0.0 10^3/uL (0.0-0.2) 04/28/20 10:42 Seg Neutrophils % 78.9 % (42-78) H 04/28/20 10:42 TSH 1.30 uIU/mL (0.47-4.68) 04/28/20 10:42 Urine Color YELLOW 04/28/20 09:45 Urine Appearance SLIGHTLY-CLOUDY 04/28/20 09:45 Urine pH 6.0 (5.0-9.0) 04/28/20 09:45 Ur Specific [place] 1.024 04/28/20 09:45 Urine Protein 30 mg/dL (NEGATIVE) H 04/28/20 09:45 Urine Glucose (UA) NEGATIVE mg/dL (NEGATIVE) 04/28/20 09:45 Urine Ketones NEGATIVE mg/dL (NEGATIVE) 04/28/20 09:45 Urine Blood LARGE (NEGATIVE) H 04/28/20 09:45 Urine Nitrite NEGATIVE (NEGATIVE) 04/28/20 09:45 Urine Bilirubin NEGATIVE (NEGATIVE) 04/28/20 09:45 Urine Urobilinogen 4.0 mg/dL (<2.0) H 04/28/20 09:45 Ur Leukocyte Esterase LARGE (NEGATIVE) H 04/28/20 09:45 Urine Ascorbic Acid NEGATIVE (NEGATIVE) 04/28/20 09:45 Membranes Rupture POSITIVE (NEGATIVE) H 04/28/20 09:53 Urine Opiates Screen NEGATIVE 04/28/20 09:45 Urine Methadone Screen NEGATIVE 04/28/20 09:45 Ur Barbiturates Screen NEGATIVE 04/28/20 09:45 Ur Phencyclidine Scrn NEGATIVE 04/28/20 09:45 Ur Amphetamines Screen NEGATIVE 04/28/20 09:45 U Benzodiazepines Scrn NEGATIVE 04/28/20 09:45 Urine Cocaine Screen NEGATIVE 04/28/20 09:45 U Marijuana (THC) Screen NEGATIVE 04/28/20 09:45 HSV II Specific Ab < 0.91 index (0.00-0.90) 04/28/20 10:42 Blood Type A POSITIVE 04/28/20 10:42 Antibody Screen NEGATIVE 04/28/20 10:42 Plan Plan of Treatment: follow up in 4 weeks at [facility] for post check
[2020-04-30 11:00] VITALS: BP 126/64
== END 2020-04-30 11:42 | disposition home or self-care (01) | DRG 807 ==
LOC: LC 09:36 → LR 10:37 → 2S 20:34
PROVIDERS: ADMIT Obstetrics & Gynecology; ATTEND Obstetrics & Gynecology
PROC: 10E0XZZ Delivery of Products of Conception, External Approach (ICD-10-PCS; principal; 2020-04-28)
DX: O99.344 Other mental disorders complicating childbirth (principal); Z37.0 Single live birth; F90.1 Attention-deficit hyperactivity disorder, predominantly hyperactive type; Z3A.40 40 weeks gestation of pregnancy; Z87.891 Personal history of nicotine dependence; Z88.8 Allergy status to other drugs, medicaments and biological substances
CPT/HCPCS: 1967; 36415; 80307; 81005; 84112; 84443; 85025; 85027; 86696; 86850; 86900; 86901; 87521; J2590; J2795; J3010; J3490

== ENCOUNTER 2020-07-02 05:22 | Emergency (ER) | payer MEDICAID ==
[2020-07-02 05:29] VITALS: BP 134/80
[2020-07-02] MEDS ORDERED: TETRACAINE HCL 0.5% OPH SOLN 4 ML OS ONE (06:42)
--- NOTE | 2020-07-02 06:42 | ER Document Report ---
HPI - HPI Time Seen by Provider: 07/02/20 06:37 Pain Level: 5 Context: Patient is a 25-year-old female that comes emergency department for chief complaint of left eye pain. She states since last night she has difficulty opening the eye, the eye keeps watering, the eye is extremely irritated and feels like "there is something stuck in it". She admits that she frequently rubs her eyes but she denies any obvious event where a foreign body went into her eye. She denies injury. She denies visual loss, discolored discharge, fever/chills, headache, or any other locations of pain. She denies contacts or glasses use. She denies any other complaints. LMP within the past month. - EENT EENT: REPORTS: Eye problems - REPRODUCTIVE Reproductive: DENIES: : Past Medical History - General Information source: Patient - Social History Smoking Status: Current Every Day Smoker Drug Abuse: None Lives with: Family Family History: Reviewed & Not Pertinent, DM, Thyroid Disfunction Renal/ Medical History: Denies: Hx Peritoneal Dialysis Psychiatric Medical History: Reports: Hx Attention Deficit Hyperactivity Disorder, Hx Bipolar Disorder, Hx Depression Past Surgical History: Reports: Hx Tonsillectomy - Immunizations Immunizations up to date: Yes Hx Diphtheria, Pertussis, Tetanus Vaccination: Yes Vertical Provider Document - CONSTITUTIONAL General Appearance: WD/WN, Mild Distress - Patient appears uncomfortable, eyes tightly shut, watering from the left eye - INFECTION CONTROL TRAVEL OUTSIDE OF THE [place] IN LAST 30 DAYS: No - HEENT HEENT: Atraumatic, Normocephalic, PERRLA. negative: Dental Injury, Normal ENT Exam - See eye exam, Pharyngeal Exudate, Pharyngeal Tenderness, Pharyngeal Erythema, Tympanic Membrane Red, Tympanic Membrane Bulging Notes: Pupils equal, round, and reactive to light. Extraocular movements intact. Left eye with mild injection of the sclera and puffy eyelids without erythema or tenderness of the eyelids. No surrounding cellulitis. Tears noted but no discharge. No superficial foreign body. There is fluorescein uptake consistent with corneal abrasion located at approximately the 8 o'clock position, negative Amada sign. No other concerning findings noted - NECK Neck: Normal Inspection - RESPIRATORY Respiratory: Breath Sounds Normal, No Respiratory Distress - CARDIOVASCULAR Cardiovascular: Regular Rate, Regular Rhythm - GI/ABDOMEN Gastrointestinal: Abdomen Soft, Abdomen Non-Tender - BACK Back: Normal Inspection - MUSCULOSKELETAL/EXTREMETIES Musculoskeletal/Extremeties: MAEW, FROM, Non-Tender - NEURO Level of Consciousness: Awake, Alert, Appropriate Motor/Sensory: No Motor Deficit, No Sensory Deficit - DERM Integumentary: Warm, Dry, No Rash Course - Re-evaluation Re-evalutation: Evaluation is consistent with corneal abrasion but no other abnormalities are noted. No headache, no visual loss, no other concerning findings. Provided with Besivance that she went home with, provided with [place] to go home with, discussed ophthalmology follow-up and return precautions. Patient states appreciation and agreement. Stable and well-appearing at time of discharge. - Vital Signs Vital signs: Temp Pulse Resp BP Pulse Ox 97.8 F 64 14 134/80 H 98 07/02/20 05:28 07/02/20 05:28 07/02/20 05:28 07/02/20 05:28 07/02/20 05:28 Discharge - Discharge Clinical Impression: Left eye pain Corneal abrasion Qualifiers: Encounter type: initial encounter Laterality: left Qualified Code(s): S05.02XA - Injury of conjunctiva and corneal abrasion without foreign body, left eye, initial encounter Condition: Stable Disposition: HOME, SELF-CARE Additional Instructions: Your evaluation indicates an injury/scratch to the surface of your eye, this is called a corneal abrasion. This should quickly heal, use the antibiotic eyedrops as prescribed (1 drop 3 times a day for 7 days). Take the pain medication if needed using the precautions. Follow-up with the ophthalmology referral for additional evaluation and management. Return if you worsen including severe worsening pain, discolored discharge, swelling, fever, loss of vision, or any other concerning symptoms. Forms: Return to Work Referrals: OLINDA BEAN MD [ACTIVE STAFF] - Follow up as needed
[2020-07-02] MEDS ORDERED: BESIFLOXACIN HCL 0.6% OPH SUSP 5 ML BOTTLE OD ONE (06:53)
[2020-07-02] MEDS ORDERED: HYDROCODONE/ACETAMINOPHEN 5-325 MG (6 TAB/ER DISP) PO PRN (06:53)
[2020-07-02] MEDS ORDERED: BESIFLOXACIN HCL 0.6% OPH SUSP 5 ML BOTTLE OS ONE (06:53)
== END 2020-07-02 08:02 | disposition home or self-care (01) ==
LOC: ER 05:22
DX: S05.02XA Injury of conjunctiva and corneal abrasion without foreign body, left eye, initial encounter (principal); H57.12 Ocular pain, left eye; X58.XXXA Exposure to other specified factors, initial encounter; F17.200 Nicotine dependence, unspecified, uncomplicated
CPT/HCPCS: 99283; J3490